=== PATIENT | female | born 1935 | race Caucasian/White ===

== ENCOUNTER 2016-07-25 15:25 | Emergency (ER) | payer MEDICARE, BC ==
[~2016-07-25] VITALS: Ht 167.6 cm; Wt 86.0 kg
[~2016-07-25 15:25] MED LIST: AMLO5TAB96 PO; ASPI325T PO; ATEN-102 PO; CALC-179 PO; CINN500C7 PO; CLON0.5T PO; CLOP75 PO; LEVE500 PO; LORA-392 PO; MAGN30TA2; MECL25CH PO; VITA400C28
[2016-07-25 15:50] VITALS: BP 135/78; PULSE 75; RESP 16; O2SAT 95
--- NOTE | 2016-07-25 16:53 | PD ---
HPI . s/p fall yesterday from tripping Chief Complaint: Fall Time Seen by Provider: 16:53 Travel History International Travel<30 days: No Contact w/Intl Traveler<30days: No Traveled to known affect area: No History of Present Illness HPI 81-year-old female with past medical history of diabetes, chronic vertigo, hx of CVA age 41, fibromyalgia, hypertension, atrial fibrillation, GERD and osteoarthritis here status post fall yesterday while transporting groceries to her house. Patient reports that she was using her rolling walker to push groceries into her house when she tripped over a stoop and fell down to the ground and landed on her right lower extremity. Patient reports that she did not have any loss of consciousness. She denies any head injury. She states that now she is having right lower extremity pain on the anterior rae. She rates the pain as a 5 out of 10 without any radiation. She is currently wearing a back brace and tells me that she has back injuries that are being followed by Dr. Banks. She denies hitting her back. She denies any syncopal events yesterday or dizziness. At the time of examination patient denies any chest pain, shortness breath, nausea, vomiting, diaphoresis, GI complaints or abdominal pain. PFSH Past Medical History Hx Anticoagulant Therapy: Yes (plavix, asa 325mg) Atrial Fibrillation: Yes Anxiety: Yes Heart Rhythm Problems: Yes Cardiac Catheterization: Yes Cardiovascular Problems: Yes (htn on meds) High Cholesterol: Yes Chest Pain: Yes Congestive Heart Failure: No Cerebrovascular Accident: Yes (tia) Coronary Artery Disease: Yes Diabetes: Yes (type 2) Diminished Hearing: Yes (dimished hearing has hearing aids) Deep Vein Thrombosis: Yes (LEFT ANKLE) Fibromyalgia: Yes GERD: Yes Hypertension: Yes Immune Disorder: Yes (FIBROMYALGIA) Kidney Stones: Yes Musculoskeletal: Yes (COSTOCHONDRITIS) Neurologic: Yes (POST STROKE SYNDROME, sciatica) Immunizations Current: Yes Myocardial Infarction: No Seizures: Yes (FOCAL) PNEUMOCCOCAL Vaccine (Year): 2 ?: Not Menopausal: Yes : 0 Para: 0 Miscarriage: 0 : 0 Past Surgical History Cholecystectomy: Yes Coronary Artery Bypass Graft: No Social History Alcohol Use: No Tobacco Use: No (quit 40 years ago) Substance Use: No Allergies-Medications (Allergen,Severity, Reaction): Coded Allergies: Floxcin (Verified Allergy, Severe, "face blotched", 07/25/16) Iodine (Unverified Allergy, Severe, Hives, 07/25/16) Latex (Verified Allergy, Severe, SWELLING AT SITE; TINGLING LIPS, 07/25/16) Macrobid (Verified Allergy, Severe, hives, 07/25/16) Penicillin (Verified Allergy, Severe, unknown, 07/25/16) Sulfa (Verified Allergy, Severe, "hives", 07/25/16) Erythromycin (Verified Adverse Reaction, Severe, "stomach problems", ) Uncoded Allergies: bandaids (Allergy, Severe, rash, 07/25/16) . Reported Meds & Prescriptions Reported Meds & Active Scripts Active Reported Magnesium 100 Mg Cap 30 Mg PO DAILY Meclizine (Meclizine HCl) 25 Mg Tab 25 Mg PO DIRECTED PRN Ativan (Lorazepam) 0.5 Mg Tab 0.5 Mg PO DAILY PRN Keppra (Levetiracetam) 500 Mg Tab 500 Mg PO Q4HR Plavix (Clopidogrel Bisulfate) 75 Mg Tab 75 Mg PO DAILY Klonopin (Clonazepam) 0.5 Mg Tab 0.5 Mg PO QID Cinnamon 500 Mg Cap 500 Mg PO DAILY Calcium/Vitamin D/Minerals (Calcium Carbonate-Vitamin D W/Minerals) 600-400 Mg- Unit Chew 1 Tab CHEW DIRECTED Atenolol 50 Mg Tab 50 Mg PO DAILY Aspirin 325 Mg Tab 325 Mg PO DAILY Norvasc (Amlodipine Besylate) 5 Mg Tab 5 Mg PO DAILY Review of Systems General / Constitutional: No: Fever Eyes: No: Visual changes HENT: No: Headaches Cardiovascular: No: Chest Pain or Discomfort Respiratory: No: Shortness of Breath Gastrointestinal: No: Abdominal Pain Genitourinary: No: Dysuria Musculoskeletal: Positive: Pain (right anterior rae) Skin: No Rash Neurologic: No: Weakness Psychiatric: No: Depression Endocrine: No: Polydipsia Hematologic/Lymphatic: No: Easy Bruising Physical Exam Narrative GENERAL: AAO x 3, no acute distress, Well-nourished, well-developed patient. Very good historian. SKIN: Warm and dry. No visible rashes or bruising. HEAD: Normocephalic and atraumatic. EYES: No scleral icterus. No injection or drainage. EOM intact, PERRLA ENT: No nasal drainage noted. Mucous membranes pink. Airway patent. NECK: Supple, trachea midline. No JVD. CARDIOVASCULAR: Regular rate and rhythm without murmurs, gallops, or rubs. RESPIRATORY: Breath sounds equal bilaterally. No accessory muscle use. No rhonchi or rales. GASTROINTESTINAL: Abdomen soft, non-tender, nondistended. EXTREMITIES: No cyanosis or edema. Point tenderness to anterior rae distal to the knee. No overall ecchymosis or edema. Patient is fully ambulatory. BACK: Nontender without obvious deformity. No CVA tenderness. Back brace in place. PSYCH: AAO x 3, normal affect. Data Data Last Documented VS Vital Signs Date Time Temp Pulse Resp B/P Pulse Ox O2 Delivery O2 Flow Rate FiO2 07/25/16 18:47 68 17 157/74 95 Orders Tibia/Fibula (Ap/Lat) (07/25/16 ) [facility] Medical Decision Making Medical Screen Exam Complete: Yes Emergency Medical Condition: Yes Medical Record Reviewed: Yes (seen multiple times most recently for vertigo) Differential Diagnosis tib/fib contusion, tib/fib fracture/ fibromyalgia Narrative Course 81-year-old female with past medical history of diabetes, chronic vertigo, hx of CVA age 41, fibromyalgia, hypertension, atrial fibrillation, GERD and osteoarthritis here status post fall yesterday while transporting groceries to her house. Patient reports that she was using her rolling walker to push groceries into her house when she tripped over a stoop and fell down to the ground and landed on her right lower extremity. Patient reports that she did not have any loss of consciousness. She denies any head injury. She states that now she is having right lower extremity pain on the anterior rae. She rates the pain as a 5 out of 10 without any radiation. She is currently wearing a back brace and tells me that she has back injuries that are being followed by Dr. Banks. She denies hitting her back. She denies any syncopal events yesterday or dizziness. At the time of examination patient denies any chest pain, shortness breath, nausea, vomiting, diaphoresis, GI complaints or abdominal pain. Patient seen and examined. Exam is unremarkable except for point tenderness on the right anterior rae distal to the knee. X-ray of the tib-fib recommended. Patients pain is 5 out of 10 offered pain medication and she declined While x-ray was pending I explained to patient that I had not been read by the radiologist but I did not see any fracture. She then expressed desire to leave and I advised that she could choose to leave AMA. She decided to stay and x-ray results were made available. She was notified that there was no acute fracture. I advised her to use Tylenol as needed for pain and to continue to ice the area. I also recommended follow-up with her primary care provider Last 24 hours Impressions Tibia/Fibula X-Ray 07/25/16 0000 Signed Impressions: Service Date/Time: Monday, July 25, 2016 17:32 - CONCLUSION: Unremarkable examination of the right tibia. Luc Cornelius MD Patient verbalized understanding of instructions, questions were answered, and thanked me for their care. I advised them if their condition worsens, please return to the nearest emergency room for further care. Diagnosis Primary Impression: Contusion of leg, right Qualified Code: S80.11XA - Contusion of leg, right, initial encounter Patient Instructions: Contusion in Adults (ED), General Instructions Additional Instructions: Please return to emergency department if your symptoms return or worsen. Follow up with your primary care provider. Take Tylenol as needed for pain. You can also use a topical muscle rub for relief. Med/Other Pt SpecificInfo: No Change to Meds Disposition: 01 DISCHARGE HOME Condition: Stable Agnes Jensen Jul 25, 2016 16:53
[2016-07-25] MEDS ORDERED: M2 M100C PO (17:01)
[2016-07-25] MEDS ORDERED: ATEN50TA PO (17:01)
[2016-07-25] MEDS ORDERED: PLAV75TA29 PO (17:01)
[2016-07-25] MEDS ORDERED: LEVE500 PO (17:01)
[2016-07-25] MEDS ORDERED: LORA-392 PO (17:01)
[2016-07-25] MEDS ORDERED: ASPI325T PO (17:01)
[2016-07-25] MEDS ORDERED: CINN500C PO (17:01)
[2016-07-25] MEDS ORDERED: AMLO5 PO (17:01)
[2016-07-25] MEDS ORDERED: [UNRECOGNIZED DRUG - CODE] CHEW (17:01)
[2016-07-25] MEDS ORDERED: CLON.5 PO (17:01)
[2016-07-25] MEDS ORDERED: MECL-62 PO (17:01)
--- NOTE | 2016-07-25 18:25 | RADHPO ---
EXAM DATE/TIME: 07/25/2016 17:32 [facility] COMPARISON: No previous studies available for comparison. INDICATIONS : Fall. Mid tibia pain. MEDICAL HISTORY : None. SURGICAL HISTORY : None. ENCOUNTER: Initial ACUITY: 3 days PAIN SCORE: 8/10 LOCATION: Right lateral FINDINGS: Two view examination of the right tibia demonstrates no evidence of fracture or dislocation. Bony mi neralization is normal. The soft tissue structures are intact. CONCLUSION: Unremarkable examination of the right tibia. Luc Cornelius MD on July 25, 2016 at 18:23 Board Certified Radiologist. This report was verified electronically.
[2016-07-25 18:47] VITALS: BP 157/74
== END 2016-07-25 18:48 | disposition home or self-care (01) ==
LOC: PHED 15:25 → PHEFT 18:48
DX: S80.11XA Contusion of right lower leg, initial encounter (principal); W01.0XXA Fall on same level from slipping, tripping and stumbling without subsequent striking against object, initial encounter; Y93.89 Activity, other specified; Y92.009 Unspecified place in unspecified non-institutional (private) residence as the place of occurrence of the external cause
CPT/HCPCS: 73590; 99283

== ENCOUNTER → 2016-08-12 | Outpatient (CLI) | payer MEDICARE, BC ==
[~2016-08-12] MED LIST changes: +AMLO5 PO; -AMLO5TAB96 PO; -ATEN-102 PO; +ATEN50TA PO; +BONE UP PO; -CALC-179 PO; +CINN500C PO; -CINN500C7 PO; +CLIN1CAP6 PO; +CLON.5 PO; -CLON0.5T PO; -CLOP75 PO; +M2 M100C PO; +MAGN200T PO; -MAGN30TA2; +MECL-62 PO; -MECL25CH PO; +MICO1CRE2 TOPICAL; +MICO1CRE2 VAGINAL; +MONUPAK PO; +PLAV75TA29 PO; -VITA400C28; +[UNRECOGNIZED DRUG - CODE] CHEW
[2016-08-12 13:14] LABS: AUTOMATED NEUTROPHIL # 2.6 TH/MM3 (1.8-7.7); BASOPHIL % 0.8 % (0.0-2.0); EOSINOPHIL # 0.2 TH/MM3 (0-0.4); EOSINOPHIL % 3.7 % (0.0-4.0); HEMATOCRIT 38.7 % (35.0-46.0); HEMO FLAGS DIFF FINAL; LYMPH % 31.7 % (9.0-44.0); LYMPHOCYTE # 1.5 TH/MM3 (1.0-4.8); MEAN CELL VOLUME 91.4 FL (80.0-100.0); MEAN CORPUSCULAR HEMOGLOBIN 31.4 PG (27.0-34.0); MEAN CORPUSCULAR HGB CONC 34.4 % (32.0-36.0); MONO % 9.2 % (0.0-8.0); NEUT % 54.6 % (16.0-70.0); PLATELET COUNT 224 TH/MM3 (150-450); RED BLOOD COUNT 4.23 MIL/MM3 (4.00-5.30); RED CELL DISTRIBUTION WIDTH 13.1 % (11.6-17.2); WHITE BLOOD COUNT 4.7 TH/MM3 (4.0-11.0)
[2016-08-12 13:24] LABS: BLOOD, URINE NEG (NEG); GLUCOSE,URINE NEG (NEG); KETONE, URINE NEG (NEG); MUCUS URINE FEW /lpf (OCC); NITRITE,URINE NEG (NEG); SQUAMOUS EPITHELIAL CELL URINE 1 /hpf (0-5); URINE COLOR YELLOW (YELLW/STRAW)
[2016-08-12 13:50] LABS: ALKALINE PHOSPHATASE 70 U/L (45-117); ALT (GPT) 28 U/L (10-53); ANION GAP 8 MEQ/L (5-15); AST (GOT) 26 U/L (15-37); BICARBONATE 27.9 MEQ/L (21.0-32.0); BLOOD UREA NITROGEN 14 MG/DL (7-18); CHLORIDE 103 MEQ/L (98-107); GLOMERULAR FILTRATION RATE 66 ML/MIN (>89); GLUCOSE,FASTING 169 MG/DL (74-99); HDL CHOLESTEROL 39.8 MG/DL (40.0-60.0); LDL CHOLESTEROL 108 MG/DL (0-99); POTASSIUM 4.3 MEQ/L (3.5-5.1); SODIUM (NA) 139 MEQ/L (136-145); TOTAL BILIRUBIN ADULT 0.7 MG/DL (0.2-1.0)
== END ==
LOC: PLAB 09:41
PROVIDERS: ATTEND Family Medicine
DX: M54.5 Low back pain (principal); M54.14 Radiculopathy, thoracic region; I10 Essential (primary) hypertension
CPT/HCPCS: 36415; 80053; 80061; 81001; 84443; 85025

== ENCOUNTER 2016-08-29 16:26 | Emergency (ER) | payer MEDICARE, BC ==
[~2016-08-29] VITALS: Ht 167.6 cm; Wt 85.0 kg
[~2016-08-29 16:26] MED LIST changes: -BONE UP PO; -CLIN1CAP6 PO; -MAGN200T PO; -MICO1CRE2 TOPICAL; -MICO1CRE2 VAGINAL; -MONUPAK PO
[2016-08-29 16:36] VITALS: BP 126/75; PULSE 82; RESP 16; TEMP 97.7; O2SAT 94
[2016-08-29 16:57] LABS: BLOOD, URINE NEG (NEG); GLUCOSE,URINE NEG (NEG); KETONE, URINE NEG (NEG); NITRITE,URINE NEG (NEG); PH, URINE 5.5 (5.0-8.5)
[2016-08-29 17:03] LABS: METHOD OF COLLECTION CLEAN CATCH; URINE COLOR YELLOW (YELLW/STRAW)
[2016-08-29 17:04] LABS: BACTERIA, URINE RARE /hpf; COMMENT (UR) CULT NOT INDICATED; CULTURE IF INDICATED CULT NOT INDICATED; RBC, URINE 0-3 /hpf (0-3); SQUAMOUS EPITHELIAL CELL URINE > 8 /hpf (0-5)
--- NOTE | 2016-08-29 17:15 | PD ---
HPI Chief Complaint: Complaint Time Seen by Provider: 16:55 Travel History International Travel<30 days: No Contact w/Intl Traveler<30days: No Traveled to known affect area: No History of Present Illness HPI 81-year-old female states she's been having intermittent burning when she urinates for the past 2 weeks. She denies any currently. She is concerned that she gets urinary tract infections frequently. She states that she can only take monurol given her extensive list of allergies and it is a hard medication to get. She also denies any other significant complaints including fever, vomiting, pain or other acute concerns. Quality is burning. Severity currently is none. PFSH Past Medical History Hx Anticoagulant Therapy: Yes (plavix, asa 325mg) Atrial Fibrillation: Yes Anxiety: Yes Heart Rhythm Problems: Yes Cardiac Catheterization: Yes Cardiovascular Problems: Yes (htn on meds) High Cholesterol: Yes Chest Pain: Yes Congestive Heart Failure: No Cerebrovascular Accident: Yes (tia) Coronary Artery Disease: Yes Diabetes: Yes (type 2) Diminished Hearing: Yes (dimished hearing has hearing aids) Deep Vein Thrombosis: Yes (LEFT ANKLE) Fibromyalgia: Yes GERD: Yes Hypertension: Yes Immune Disorder: Yes (FIBROMYALGIA) Kidney Stones: Yes Musculoskeletal: Yes (COSTOCHONDRITIS) Neurologic: Yes (POST STROKE SYNDROME, sciatica) Immunizations Current: Yes Myocardial Infarction: No Seizures: Yes (FOCAL) PNEUMOCCOCAL Vaccine (Year): 2 Menopausal: Yes : 0 Para: 0 Miscarriage: 0 : 0 Past Surgical History Cholecystectomy: Yes Coronary Artery Bypass Graft: No Other Surgery: Yes (GB) Social History Alcohol Use: No Tobacco Use: No (quit 40 years ago) Substance Use: No Allergies-Medications (Allergen,Severity, Reaction): Coded Allergies: Floxcin (Verified Allergy, Severe, "face blotched", 08/29/16) Iodine (Unverified Allergy, Severe, Hives, 08/29/16) Latex (Verified Allergy, Severe, SWELLING AT SITE; TINGLING LIPS, 08/29/16) Macrobid (Verified Allergy, Severe, hives, 08/29/16) Penicillin (Verified Allergy, Severe, unknown, 08/29/16) Sulfa (Verified Allergy, Severe, "hives", 08/29/16) Erythromycin (Verified Adverse Reaction, Severe, "stomach problems", ) Uncoded Allergies: bandaids (Allergy, Severe, rash, 07/25/16) . Reported Meds & Prescriptions Reported Meds & Active Scripts Active Reported Magnesium 100 Mg Cap 30 Mg PO DAILY Meclizine (Meclizine HCl) 25 Mg Tab 25 Mg PO DIRECTED PRN Ativan (Lorazepam) 0.5 Mg Tab 0.5 Mg PO DAILY PRN Keppra (Levetiracetam) 500 Mg Tab 500 Mg PO Q4HR Plavix (Clopidogrel Bisulfate) 75 Mg Tab 75 Mg PO DAILY Klonopin (Clonazepam) 0.5 Mg Tab 0.5 Mg PO QID Cinnamon 500 Mg Cap 500 Mg PO DAILY Calcium/Vitamin D/Minerals (Calcium Carbonate-Vitamin D W/Minerals) 600-400 Mg- Unit Chew 1 Tab CHEW DIRECTED Atenolol 50 Mg Tab 50 Mg PO DAILY Aspirin 325 Mg Tab 325 Mg PO DAILY Norvasc (Amlodipine Besylate) 5 Mg Tab 5 Mg PO DAILY Review of Systems Except as stated in HPI: all other systems reviewed are Neg Physical Exam Narrative GENERAL: Well-nourished, well-developed patient. SKIN: Warm and dry. HEAD: Normocephalic and atraumatic. EYES: No injection or drainage. ENT: No nasal drainage noted. NECK: Supple, trachea midline. CARDIOVASCULAR: Regular rate and rhythm RESPIRATORY: no increased effort. No accessory muscle use. GASTROINTESTINAL: Abdomen soft, non-tender, nondistended. NEUROLOGICAL: Awake and alert. Motor and sensory grossly within normal limits. Normal speech. Data Data Last Documented VS Vital Signs Date Time Temp Pulse Resp B/P Pulse Ox O2 Delivery O2 Flow Rate FiO2 08/29/16 16:36 97.7 82 16 126/75 94 Orders Urinalysis - C+S If Indicated (08/29/16 16:30) Labs Laboratory Tests Test 08/29/16 16:45 Urine Collection Type CLEAN CATCH Urine Color YELLOW Urine Turbidity CLEAR Urine pH 5.5 Urine Specific [place] 1.022 Urine Protein NEG mg/dL Urine Glucose (UA) NEG mg/dL Urine Ketones NEG mg/dL Urine Occult Blood NEG Urine Nitrite NEG Urine Bilirubin NEG Urine Leukocyte Esterase NEG Urine RBC 0-3 /hpf Urine WBC 3-5 /hpf Urine Squamous Epithelial > 8 /hpf Cells Urine Bacteria RARE /hpf Urine Hyaline Casts 3-5 /lpf Microscopic Urinalysis Comment CULT NOT INDICATED Urine Collection Time 16:45 MDM Medical Decision Making Medical Screen Exam Complete: Yes Emergency Medical Condition: Yes Medical Record Reviewed: Yes (pmh confirmed) Interpretation(s) ua no significant signs of infection Differential Diagnosis uti, yeast, stone... Narrative Course Will follow urinalysis sent in triage and reevaluate Urine shows no significant signs of infection. Given multiple allergies she agrees to follow with her urologist for further care. Given return instructions Diagnosis Primary Impression: Dysuria Patient Instructions: General Instructions Additional Instructions: follow with your urologist this week, return as needed, tylenol as needed Med/Other Pt SpecificInfo: No Change to Meds Disposition: 01 DISCHARGE HOME Condition: Stable Giovana Hoffman MD Aug 29, 2016 17:14
== END 2016-08-29 17:30 | disposition home or self-care (01) ==
LOC: PHED 16:26
DX: R30.0 Dysuria (principal); I48.91 Unspecified atrial fibrillation; I10 Essential (primary) hypertension; E78.00 Pure hypercholesterolemia, unspecified; I25.10 Atherosclerotic heart disease of native coronary artery without angina pectoris; E11.9 Type 2 diabetes mellitus without complications; M79.7 Fibromyalgia; Z86.718 Personal history of other venous thrombosis and embolism; Z86.73 Personal history of transient ischemic attack (TIA), and cerebral infarction without residual deficits; Z87.442 Personal history of urinary calculi; Z79.01 Long term (current) use of anticoagulants; Z87.891 Personal history of nicotine dependence
CPT/HCPCS: 81001; 99283

== ENCOUNTER 2016-09-05 12:39 | Emergency (ER) | payer MEDICARE, BC ==
[~2016-09-05] VITALS: Ht 167.6 cm; Wt 86.1 kg
[2016-09-05 12:55] VITALS: BP 139/78; PULSE 70; RESP 16; TEMP 97.9; O2SAT 93
[2016-09-05] MEDS ORDERED: CLIN1CAP6 PO (13:40)
[2016-09-05] MEDS ORDERED: MICO1CRE2 VAGINAL (13:40)
--- NOTE | 2016-09-05 13:41 | PD ---
HPI Chief Complaint: Complaint Time Seen by Provider: 13:13 Travel History International Travel<30 days: No Contact w/Intl Traveler<30days: No Traveled to known affect area: No History of Present Illness HPI This is an 81-year-old female who presents to the emergency department with burning and pain in her vagina worse on the left, constant for one week, worsening ever since she had a urethral dilation by Dr. Leiva in the setting of chronic dysuria. She has been taking an antibiotic that she can only get in powder form from [facility]. She's not sure of the name. She has had problems in her vagina that her doctor has had to cut open in the past. PFSH Past Medical History Hx Anticoagulant Therapy: Yes (plavix, asa 325mg) Atrial Fibrillation: Yes Anxiety: Yes Heart Rhythm Problems: Yes Cardiac Catheterization: Yes Cardiovascular Problems: Yes (htn on meds) High Cholesterol: Yes Chest Pain: Yes Congestive Heart Failure: No Cerebrovascular Accident: Yes (tia) Coronary Artery Disease: Yes Diabetes: Yes (type 2) Patient Takes Glucophage: No Diminished Hearing: Yes (dimished hearing has hearing aids) Deep Vein Thrombosis: Yes (LEFT ANKLE) Fibromyalgia: Yes GERD: Yes Heparin Induced Thrombocytopen: No Hypertension: Yes Immune Disorder: Yes (FIBROMYALGIA) Kidney Stones: Yes Musculoskeletal: Yes (COSTOCHONDRITIS) Neurologic: Yes (POST STROKE SYNDROME, sciatica) Immunizations Current: Yes Myocardial Infarction: No Seizures: Yes (FOCAL) Tetanus Vaccination: Unknown PNEUMOCCOCAL Vaccine (Year): 2 ?: Not Menopausal: Yes : 0 Para: 0 Miscarriage: 0 : 0 Past Surgical History Cholecystectomy: Yes Coronary Artery Bypass Graft: No Other Surgery: Yes (GB) Family History Family Myocardial Infarction: No Social History Alcohol Use: No Tobacco Use: No (quit 40 years ago) Substance Use: No Allergies-Medications (Allergen,Severity, Reaction): Coded Allergies: Floxcin (Verified Allergy, Severe, "face blotched", 09/05/16) Iodine (Unverified Allergy, Severe, Hives, 09/05/16) Latex (Verified Allergy, Severe, SWELLING AT SITE; TINGLING LIPS, 09/05/16) Macrobid (Verified Allergy, Severe, hives, 09/05/16) Penicillin (Verified Allergy, Severe, unknown, 09/05/16) Sulfa (Verified Allergy, Severe, "hives", 09/05/16) Erythromycin (Verified Adverse Reaction, Severe, "stomach problems", ) Uncoded Allergies: bandaids (Allergy, Severe, rash, 07/25/16) . Reported Meds & Prescriptions Reported Meds & Active Scripts Active Reported Magnesium 100 Mg Cap 30 Mg PO DAILY Meclizine (Meclizine HCl) 25 Mg Tab 25 Mg PO DIRECTED PRN Ativan (Lorazepam) 0.5 Mg Tab 0.5 Mg PO DAILY PRN Keppra (Levetiracetam) 500 Mg Tab 500 Mg PO Q4HR Plavix (Clopidogrel Bisulfate) 75 Mg Tab 75 Mg PO DAILY Klonopin (Clonazepam) 0.5 Mg Tab 0.5 Mg PO QID Cinnamon 500 Mg Cap 500 Mg PO DAILY Calcium/Vitamin D/Minerals (Calcium Carbonate-Vitamin D W/Minerals) 600-400 Mg- Unit Chew 1 Tab CHEW DIRECTED Atenolol 50 Mg Tab 50 Mg PO DAILY Aspirin 325 Mg Tab 325 Mg PO DAILY Norvasc (Amlodipine Besylate) 5 Mg Tab 5 Mg PO DAILY Review of Systems Except as stated in HPI: all other systems reviewed are Neg Physical Exam Narrative GENERAL:Well appearing, no acute distress SKIN: Warm and dry. HEAD: Atraumatic. Normocephalic. EYES: Pupils equal and round. No injection or drainage. ENT: Moist mucous membranes NECK: Trachea midline. CARDIOVASCULAR: Regular rate and rhythm. No murmur appreciated. RESPIRATORY: Clear to auscultation. Breath sounds equal bilaterally. GASTROINTESTINAL: Abdomen soft, non-tender, nondistended. [employer]: Erythema of the vaginal mucosa with some white discharge and a tender firm indurated area of about 2 cm along the left labia majora MUSCULOSKELETAL: No obvious deformities. NEUROLOGICAL: Awake and alert. No obvious cranial nerve deficits. Moving all extremities. PSYCHIATRIC: Appropriate mood and affect; insight and judgment normal. Data Data Last Documented VS Vital Signs Date Time Temp Pulse Resp B/P Pulse Ox O2 Delivery O2 Flow Rate FiO2 09/05/16 12:55 97.9 70 16 139/78 93 Orders Urinalysis - C+S If Indicated (09/05/16 13:12) MDM Medical Decision Making Medical Screen Exam Complete: Yes Emergency Medical Condition: Yes Differential Diagnosis Yeast infection, vulvar abscess, Bartholin's cyst, vaginitis, urinary tract infection Narrative Course This is an 81-year-old female who presents to the emergency department with pain and burning with urination as well as focal pain in the left vulvar area. She appears to have a possible early abscess of the left vulva which is quite discrete. At this time I don't think an incision and drainage is warranted. I advised her to apply warm compresses and will prescribe an antibiotic course. In addition I will prescribe for fluconazole for yeast infection. 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 She is otherwise nontoxic appearing and appropriate for outpatient management. Diagnosis Primary Impression: Yeast infection Additional Impression: Vulval boil Referrals: Informatics Pharmacist call for appointment Patient Instructions: General Instructions Departure Forms: Tests/Procedures Additional Instructions: If you develop increasing pain or swelling in your vagina, fevers or chills return to the emergency department. Apply warm washcloth for 15 minutes 4 times a day on the area and follow-up with your otr owner operator truck driver if this is not improving. Med/Other Pt SpecificInfo: Prescription(s) given Scripts Clindamycin 300 Mg [id number] Mg PO Q6H 7 Days Ref 0 Prov:Cristin Fisher MD 09/05/16 Miconazole 3 Vaginal Cream (Monistat 3 Vaginal Cream)4 % Cream1 Appl VAGINAL HS #1 BOX Ref 0 Prov:Cristin Fisher MD 09/05/16 Cristin Fisher MD Sep 05, 2016 13:41
[2016-09-05 13:43] LABS: BLOOD, URINE NEG (NEG); GLUCOSE,URINE NEG (NEG); KETONE, URINE TRACE mg/dL (NEG); NITRITE,URINE NEG (NEG)
[2016-09-05 13:45] LABS: METHOD OF COLLECTION CLEAN CATCH; URINE COLOR YELLOW (YELLW/STRAW)
[2016-09-05 13:51] LABS: COMMENT (UR) CULT NOT INDICATED; CULTURE IF INDICATED CULT NOT INDICATED; RBC, URINE 0-3 /hpf (0-3); SQUAMOUS EPITHELIAL CELL URINE 0-5 /hpf (0-5); WBC, URINE 0-2 /hpf (0-5)
== END 2016-09-05 13:57 | disposition home or self-care (01) ==
LOC: PHED 12:39
DX: B37.9 Candidiasis, unspecified (principal); N76.4 Abscess of vulva; R30.0 Dysuria; I10 Essential (primary) hypertension; E11.9 Type 2 diabetes mellitus without complications; E78.00 Pure hypercholesterolemia, unspecified; H91.90 Unspecified hearing loss, unspecified ear; Z79.01 Long term (current) use of anticoagulants; Z86.79 Personal history of other diseases of the circulatory system; Z86.59 Personal history of other mental and behavioral disorders; Z86.718 Personal history of other venous thrombosis and embolism; Z87.39 Personal history of other diseases of the musculoskeletal system and connective tissue; Z87.19 Personal history of other diseases of the digestive system; Z86.69 Personal history of other diseases of the nervous system and sense organs
CPT/HCPCS: 81001; 99283

== ENCOUNTER 2016-10-09 10:45 | Emergency (ER) | payer MEDICARE, BC ==
[~2016-10-09] VITALS: Ht 166.4 cm; Wt 84.0 kg
[~2016-10-09 10:45] MED LIST changes: +CLIN1CAP6 PO; +MICO1CRE2 VAGINAL
[2016-10-09 10:46] VITALS: BP 185/83; PULSE 78; RESP 20; TEMP 97.5; O2SAT 95
[2016-10-09 11:32] LABS: BACTERIA, URINE RARE /hpf; BLOOD, URINE SMALL (NEG); COMMENT (UR) CULTURE INDICATED; CULTURE IF INDICATED CULTURE INDICATED; GLUCOSE,URINE NEG (NEG); KETONE, URINE NEG (NEG); MUCUS URINE FEW /lpf (OCC); NITRITE,URINE NEG (NEG); SQUAMOUS EPITHELIAL CELL URINE 1 /hpf (0-5); URINE COLOR YELLOW (YELLW/STRAW)
--- NOTE | 2016-10-09 11:44 | PD ---
HPI Chief Complaint: Complaint Time Seen by Provider: 11:30 Travel History International Travel<30 days: No Contact w/Intl Traveler<30days: No Traveled to known affect area: No History of Present Illness HPI This is an 81-year-old female with history of chronic dysuria, frequent urethral dilations, presents for evaluation of incontinence. She reports that throughout the night she urinated on her underwear several times which is unusual for her. It kept her up throughout the night. She reports increased urinary frequency as well. She denies any acute dysuria or pain but she does endorse a pressure sensation over her pubis. She denies any generalized abdominal pain, nausea or vomiting, fevers or chills. She does endorse chronic lower back pain and 3 weeks ago she did fall. Since that her back pain has been a little bit worse and over the past 3 days she endorses some radicular symptoms down her left leg. She denies any lower extremity weakness, saddle anesthesia. She reports that despite her chronic dysuria she only very rarely gets urinary tract infections and she doubts that she has a urinary tract infection at this time. She reports that the only antibiotic that she is able to take is Monurole. PFSH Past Medical History Hx Anticoagulant Therapy: Yes (PLAVIX/ASA) Atrial Fibrillation: Yes Anxiety: Yes Heart Rhythm Problems: Yes Cardiac Catheterization: Yes Cardiovascular Problems: Yes High Cholesterol: Yes Chest Pain: Yes Congestive Heart Failure: No Cerebrovascular Accident: Yes (tia) Coronary Artery Disease: Yes Diabetes: Yes Patient Takes Glucophage: No Diminished Hearing: Yes (dimished hearing has hearing aids) Deep Vein Thrombosis: Yes (LEFT ANKLE) Fibromyalgia: Yes GERD: Yes Heparin Induced Thrombocytopen: No Hypertension: Yes Immune Disorder: Yes (FIBROMYALGIA) Kidney Stones: Yes Musculoskeletal: Yes (COSTOCHONDRITIS) Neurologic: Yes (POST STROKE SYNDROME, sciatica) Immunizations Current: Yes Myocardial Infarction: No Seizures: Yes (FOCAL) PNEUMOCCOCAL Vaccine (Year): 2 Menopausal: Yes : 0 Para: 0 Miscarriage: 0 : 0 Past Surgical History Cholecystectomy: Yes Coronary Artery Bypass Graft: No Other Surgery: Yes (GB) Social History Alcohol Use: No Tobacco Use: No (quit 40 years ago) Substance Use: No Allergies-Medications (Allergen,Severity, Reaction): Coded Allergies: Floxcin (Verified Allergy, Severe, "face blotched", 10/09/16) Iodine (Unverified Allergy, Severe, Hives, 10/09/16) Latex (Verified Allergy, Severe, SWELLING AT SITE; TINGLING LIPS, 10/09/16) Macrobid (Verified Allergy, Severe, hives, 10/09/16) Penicillin (Verified Allergy, Severe, unknown, 10/09/16) Sulfa (Verified Allergy, Severe, "hives", 10/09/16) Erythromycin (Verified Adverse Reaction, Severe, "stomach problems", ) Uncoded Allergies: bandaids (Allergy, Severe, rash, 07/25/16) . Reported Meds & Prescriptions Reported Meds & Active Scripts Active Monurol Packet (Fosfomycin Tromethamine) 3 Gm Powderpack 1 Pack PO ONCE Clindamycin (Clindamycin HCl) 300 Mg Cap 300 Mg PO Q6H 7 Days Monistat 3 Vaginal Cream (Miconazole 3 Vaginal Cream) 4 % Cream 1 Appl VAGINAL HS Reported Magnesium 100 Mg Cap 30 Mg PO DAILY Meclizine (Meclizine HCl) 25 Mg Tab 25 Mg PO DIRECTED PRN Ativan (Lorazepam) 0.5 Mg Tab 0.5 Mg PO DAILY PRN Keppra (Levetiracetam) 500 Mg Tab 500 Mg PO Q4HR Plavix (Clopidogrel Bisulfate) 75 Mg Tab 75 Mg PO DAILY Klonopin (Clonazepam) 0.5 Mg Tab 0.5 Mg PO QID Cinnamon 500 Mg Cap 500 Mg PO DAILY Calcium/Vitamin D/Minerals (Calcium Carbonate-Vitamin D W/Minerals) 600-400 Mg- Unit Chew 1 Tab CHEW DIRECTED Atenolol 50 Mg Tab 50 Mg PO DAILY Aspirin 325 Mg Tab 325 Mg PO DAILY Norvasc (Amlodipine Besylate) 5 Mg Tab 5 Mg PO DAILY Review of Systems Except as stated in HPI: all other systems reviewed are Neg Physical Exam Narrative GENERAL: Well-developed well-nourished female in no acute distress SKIN: Warm and dry. HEAD: Atraumatic. Normocephalic. EYES: Pupils equal and round. No scleral icterus. No injection or drainage. ENT: No nasal bleeding or discharge. Mucous membranes pink and moist. NECK: Trachea midline. No JVD. CARDIOVASCULAR: Regular rate and rhythm. No murmur appreciated. RESPIRATORY: No accessory muscle use. Clear to auscultation. Breath sounds equal bilaterally. GASTROINTESTINAL: Abdomen soft, non-tender, nondistended. Hepatic and splenic margins not palpable. MUSCULOSKELETAL: No obvious deformities. No CVA tenderness. Some tenderness to palpation along the spine. 5 out of 5 muscle strength leg flexion and extension, dorsi and plantar flexion. 1+ Achilles/patellar reflex bilaterally. The patient is able to ambulate without assistance to the bathroom. NEUROLOGICAL: Awake and alert. No obvious cranial nerve deficits. Motor grossly within normal limits. Normal speech. PSYCHIATRIC: Appropriate mood and affect; insight and judgment normal. Data Data Last Documented VS Vital Signs Date Time Temp Pulse Resp B/P Pulse Ox O2 Delivery O2 Flow Rate FiO2 10/09/16 10:46 97.5 78 20 185/83 95 Room Air Orders Urinalysis - C+S If Indicated (10/09/16 10:56) Urine Culture (10/09/16 11:10) Mri L Spine W/O Contrast (10/09/16 ) Complete Blood Count With Diff (10/09/16 11:36) Basic Metabolic Panel (Bmp) (10/09/16 11:36) Labs Laboratory Tests Test 10/09/16 10/09/16 11:10 11:40 Urine Color YELLOW Urine Turbidity HAZY Urine pH 5.0 Urine Specific [place] 1.023 Urine Protein 30 mg/dL Urine Glucose (UA) NEG mg/dL Urine Ketones NEG mg/dL Urine Occult Blood SMALL Urine Nitrite NEG Urine Bilirubin NEG Urine Urobilinogen LESS THAN 2.0 MG/DL Urine Leukocyte Esterase LARGE Urine RBC 27 /hpf Urine WBC /hpf Urine Squamous Epithelial 1 /hpf Cells Urine Bacteria RARE /hpf Urine Mucus FEW /lpf Microscopic Urinalysis Comment CULTURE INDICATED White Blood Count 8.0 TH/MM3 Red Blood Count 4.35 MIL/MM3 Hemoglobin 13.2 GM/DL Hematocrit 39.6 % Mean Corpuscular Volume 90.9 FL Mean Corpuscular Hemoglobin 30.4 PG Mean Corpuscular Hemoglobin 33.5 % Concent Red Cell Distribution Width 13.1 % Platelet Count 163 TH/MM3 Mean Platelet Volume 8.4 FL Neutrophils (%) (Auto) 71.2 % Lymphocytes (%) (Auto) 20.3 % Monocytes (%) (Auto) 7.0 % Eosinophils (%) (Auto) 1.0 % Basophils (%) (Auto) 0.5 % Neutrophils # (Auto) 5.7 TH/MM3 Lymphocytes # (Auto) 1.6 TH/MM3 Monocytes # (Auto) 0.6 TH/MM3 Eosinophils # (Auto) 0.1 TH/MM3 Basophils # (Auto) 0.0 TH/MM3 CBC Comment DIFF FINAL Differential Comment Sodium Level 140 MEQ/L Potassium Level 4.1 MEQ/L Chloride Level 102 MEQ/L Carbon Dioxide Level 29.1 MEQ/L Anion Gap 9 MEQ/L Blood Urea Nitrogen 15 MG/DL Creatinine 0.87 MG/DL Estimat Glomerular Filtration 63 ML/MIN Rate Random Glucose 196 MG/DL Calcium Level 9.4 MG/DL [facility] Medical Decision Making Medical Screen Exam Complete: Yes Emergency Medical Condition: Yes Medical Record Reviewed: Yes Differential Diagnosis Stress incontinence, overflow incontinence, urgency incontinence, UTI, cauda equina Narrative Course 81-year-old female with history of chronic urinary issues presents now with the chief complaint of acute incontinence issues since last night. She reports that she urinated in her underwear several times and it is associated with a slight pressure over her pubis. She does endorse chronic lower back pain, somewhat worse over the past few weeks with radicular symptoms down the left leg. She does endorse a mechanical fall to 3 weeks ago. Given these symptoms with the chief complaint of incontinence, plan is for MRI of the lumbar spine to rule out spinal cord etiology. Plan is for urinalysis, CBC and BMP. The patient's laboratory imaging studies of injury. She she has innumerable white blood cells in the urine consistent with a urinary tract infection, likely etiology for her symptoms. MRI revealed mild degenerative changes, no acute findings. CBC and BMP were unremarkable. The patient is stable for discharge, outpatient follow-up with urology. Diagnosis Primary Impression: Urinary tract infection Qualified Code: N30.01 - Acute cystitis with hematuria Additional Instructions: Medication as prescribed, follow-up with urology, return for any emergent medical conditions. Med/Other Pt SpecificInfo: Prescription(s) given Scripts Fosfomycin Packet (Monurol Packet)3 Gm Powderpack1 Pack PO ONCE #1 Prov:Wojciech Nichols MD 10/09/16 Disposition: DISCHARGE HOME Condition: Stable Tonny Rodriguez October 09, 2016 11:44
[2016-10-09] MEDS ORDERED: MONUPAK PO (11:46)
[2016-10-09 12:05] LABS: AUTOMATED NEUTROPHIL # 5.7 TH/MM3 (1.8-7.7); BASOPHIL % 0.5 % (0.0-2.0); EOSINOPHIL # 0.1 TH/MM3 (0-0.4); HEMATOCRIT 39.6 % (35.0-46.0); HEMO FLAGS DIFF FINAL; LYMPH % 20.3 % (9.0-44.0); LYMPHOCYTE # 1.6 TH/MM3 (1.0-4.8); MEAN CELL VOLUME 90.9 FL (80.0-100.0); MEAN CORPUSCULAR HEMOGLOBIN 30.4 PG (27.0-34.0); MEAN CORPUSCULAR HGB CONC 33.5 % (32.0-36.0); NEUT % 71.2 % (16.0-70.0); PLATELET COUNT 163 TH/MM3 (150-450); RED BLOOD COUNT 4.35 MIL/MM3 (4.00-5.30); RED CELL DISTRIBUTION WIDTH 13.1 % (11.6-17.2)
[2016-10-09 12:18] LABS: BICARBONATE 29.1 MEQ/L (21.0-32.0); POTASSIUM 4.1 MEQ/L (3.5-5.1)
--- NOTE | 2016-10-09 13:15 | RADRPT ---
EXAM DATE/TIME: 10/09/2016 12:43 [facility] COMPARISON: No previous studies available for comparison. INDICATIONS : Low back pain/incontinence MEDICAL HISTORY : Diabetes mellitus type 2. Hypertension. Cardiovascular disease. SURGICAL HISTORY : Coronary artery stent. Cholecystectomy. ENCOUNTER: Initial ACUITY: 1 day PAIN SCORE: 5/10 LOCATION: [facility] TECHNIQUE: Multiplanar multisequence MRI of the lumbar spine was performed without contrast. FINDINGS: The most caudal appearing lumbar vertebra is numbered as L5. Sagittal T1 and T2-weighted images demonstrate dyskinesia, degenerated disc throughout the lumbar spi ne. There is an old compression fracture involving the superior endplate of L1. There is no significa nt marrow edema within this on the inversion recovery images. The cord terminates in its appropriate location. The paraspinous soft tissues are unremarkable. T12-L1: There is minimal bony retropulsion of the superior endplate of L1. There is a small broad-based disc bulge. The ankle space and foramina are adequate. L1-L2: There is minimal broad-based disc bulge. There is mild facet arthritis bilaterally. The thecal space and foramina are adequate. L2-L3: There is a degenerated disc with a small broad-based disc bulge and osteophytic ridging. This just ef faces the ventral thecal sac. The residual thecal space and foramina are adequate. There is mild face t arthritis bilaterally. L3-L4: There is broad-based disc bulge and mild osteophytic ridging which effaces the ventral thecal sac. Th ere is mild narrowing of the thecal sac. There is moderate facet arthritis bilaterally with degenerat sheree facet and ligamentous hypertrophy. The foramina are adequate. L4-L5: There is a broad-based disc bulge and diffuse osteophytic ridging. There is advanced facet arthritis bilaterally with degenerative facet and ligamentous hypertrophy this results in a mild degree of spin al stenosis and bilateral foraminal narrowing. L5-S1: There is a degenerated disc with broad-based disc bulge. This effaces the ventral thecal sac. There i s disc material evident encroaching upon the lateral recess and foraminal on the left. The foramina o n the right appears adequate. There is mild facet arthritis bilaterally. CONCLUSION: 1. There are degenerative changes throughout the lumbar spine as described above. There are some area s of mild spinal stenosis but no severe spinal stenosis is evident. The individual levels are dictate d in detail above. Karl Oquendo MD on October 09, 2016 at 13:10 Board Certified Radiologist. This report was verified electronically.
[2016-10-09] MEDS ORDERED: MICO1CRE2 TOPICAL (14:00)
[2016-10-09] MEDS ORDERED: MAGN200T PO (14:00)
[2016-10-09] MEDS ORDERED: BONE UP PO (14:00)
== END 2016-10-09 14:11 | disposition home or self-care (01) ==
LOC: NEPC 10:45
DX: N30.01 Acute cystitis with hematuria (principal); B96.89 Other specified bacterial agents as the cause of diseases classified elsewhere
CPT/HCPCS: 72148; 80048; 81001; 85025; 87086

== ENCOUNTER → 2016-11-12 | Outpatient (CLI) | payer MEDICARE, BC ==
[~2016-11-12] MED LIST changes: +BONE UP PO; -CLIN1CAP6 PO; -M2 M100C PO; +MAGN200T PO; -MECL-62 PO; +MICO1CRE2 TOPICAL; -MICO1CRE2 VAGINAL; +MONUPAK PO; -[UNRECOGNIZED DRUG - CODE] CHEW
[2016-11-12 13:10] LABS: HEMATOCRIT 41.9 % (35.0-46.0); MEAN CELL VOLUME 91.8 FL (80.0-100.0); MEAN CORPUSCULAR HEMOGLOBIN 30.3 PG (27.0-34.0); PLATELET COUNT 168 TH/MM3 (150-450); RED BLOOD COUNT 4.56 MIL/MM3 (4.00-5.30); RED CELL DISTRIBUTION WIDTH 13.4 % (11.6-17.2); REVIEW FLAG FINAL; WHITE BLOOD COUNT 4.5 TH/MM3 (4.0-11.0)
[2016-11-12 13:10] LABS: BACTERIA, URINE RARE /hpf; BLOOD, URINE NEG (NEG); GLUCOSE,URINE NEG (NEG); KETONE, URINE NEG (NEG); MUCUS URINE FEW /lpf (OCC); NITRITE,URINE NEG (NEG); SQUAMOUS EPITHELIAL CELL URINE 2 /hpf (0-5); TRANSITIONAL EPI CELLS, URINE <1 /hpf; URINE COLOR YELLOW (YELLW/STRAW)
[2016-11-12 13:39] LABS: ANION GAP 12 MEQ/L (5-15); AST (GOT) 26 U/L (15-37); BICARBONATE 23.3 MEQ/L (21.0-32.0); BLOOD UREA NITROGEN 18 MG/DL (7-18); CHLORIDE 102 MEQ/L (98-107); GLOMERULAR FILTRATION RATE 57 ML/MIN (>89); GLUCOSE,FASTING 175 MG/DL (74-99); POTASSIUM 3.9 MEQ/L (3.5-5.1); SODIUM (NA) 137 MEQ/L (136-145)
[2016-11-12 13:41] LABS: ALT (GPT) 31 U/L (10-53)
[2016-11-12 13:50] LABS: ALKALINE PHOSPHATASE 66 U/L (45-117); HDL CHOLESTEROL 43.8 MG/DL (40.0-60.0); LDL CHOLESTEROL 174 MG/DL (0-99); TOTAL BILIRUBIN ADULT 0.9 MG/DL (0.2-1.0)
== END ==
LOC: PLAB 09:03
PROVIDERS: ATTEND Family Medicine
DX: M54.5 Low back pain (principal); M54.14 Radiculopathy, thoracic region; I10 Essential (primary) hypertension
CPT/HCPCS: 36415; 80053; 80061; 81001; 84443; 85027

== ENCOUNTER 2017-11-10 15:00 | Inpatient (IN) | payer MEDICARE, BC ==
[~2017-11-10] VITALS: Ht 167.6 cm; Wt 80.0 kg
[~2017-11-10 15:00] MED LIST changes: +ASPI-183 PO; -ASPI325T PO
[2017-11-10 15:20] VITALS: BP 156/72; PULSE 84; RESP 20; TEMP 98.4; O2SAT 97
--- NOTE | 2017-11-10 16:09 | PD ---
HPI Chief Complaint: Medical Clearance Time Seen by Provider: 15:23 Travel History International Travel<30 days: No Contact w/Intl Traveler<30days: No Traveled to known affect area: No History of Present Illness HPI Patient is an 82-year-old female presenting to the emergency department for evaluation of left lower extremity edema. Patient states it has been more swollen for the last 2-3 days. 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 Patient reports a history of a DVT remotely, she believes it was in her knee. She states her leg is painful, she rates it a 6 out of 10, worse with walking. Patient denies any chest pain, shortness of breath, fever, chills, headache. She is on aspirin and Plavix. Symptom onset was gradual, symptoms are mild to moderate nature. Symptoms are constant but alleviated with rest and exacerbated with movement. PFSH Past Medical History Hx Anticoagulant Therapy: Yes (PLAVIX/ASA) Atrial Fibrillation: Yes Anxiety: Yes Heart Rhythm Problems: Yes Cardiac Catheterization: Yes Cardiovascular Problems: Yes High Cholesterol: Yes Chest Pain: Yes Cerebrovascular Accident: Yes (tia) Coronary Artery Disease: Yes Diabetes: Yes Diminished Hearing: Yes (dimished hearing has hearing aids) Deep Vein Thrombosis: Yes (LEFT ANKLE) Fibromyalgia: Yes GERD: Yes Heparin Induced Thrombocytopen: No Hypertension: Yes Kidney Stones: Yes Musculoskeletal: Yes (COSTOCHONDRITIS) Immunizations Current: Yes Seizures: Yes (FOCAL) PNEUMOCCOCAL Vaccine (Year): 2 Menopausal: Yes : 0 Para: 0 Miscarriage: 0 : 0 Past Surgical History Cholecystectomy: Yes Coronary Artery Bypass Graft: No Other Surgery: Yes (GB) Social History Alcohol Use: No Tobacco Use: No (quit 40 years ago) Substance Use: No Allergies-Medications (Allergen,Severity, Reaction): Coded Allergies: Sulfa (Sulfonamide Antibiotics) (Unverified Allergy, Severe, "hives", ) iodine (Unverified Allergy, Severe, Hives, 11/10/17) latex (Unverified Allergy, Severe, SWELLING AT SITE; TINGLING LIPS, 11/10/17 ) nitrofurantoin (Unverified Allergy, Severe, hives, 11/10/17) ofloxacin (Unverified Allergy, Severe, "face blotched", 11/10/17) penicillin G (Unverified Allergy, Severe, unknown, 11/10/17) potassium iodide (Unverified Allergy, Severe, Hives, 11/10/17) povidone-iodine (Unverified Allergy, Severe, Hives, 11/10/17) sodium iodide (Unverified Allergy, Severe, Hives, 11/10/17) sodium iodide (Unverified Allergy, Severe, Hives, 11/10/17) erythromycin base (Unverified Adverse Reaction, Severe, "stomach problems ", 11/10/17) Uncoded Allergies: bandaids (Allergy, Severe, rash, 07/25/16) . Reported Meds & Prescriptions Reported Meds & Active Scripts Active Reported Estrace Vaginal (Estradiol) 0.01% Cream 1 Appl VAGINAL HS Co Q 10 (Coenzyme Q10 (Ubidecarenone)) 100 Mg-5 Unit Cap 1 Tab PO DAILY Acidophilus (Probiotic Product) 1 Chew 1 Tab PO DAILY Vitamin D-400 (Cholecalciferol) 400 Unit Tab 400 Units PO DAILY Malka-C 1,000 mg Tablet (Ascorbate Calcium/Bioflavonoid) 1,000 Mg-200 Mg Tablet 1 Tab PO DAILY Cranberry Urinary Comfort (Vitamins C & E) 1 Cap 1 Cap PO DAILY Warfarin 1 Mg Tab 1 Mg PO DAILY Calcium 500 +D (Calcium Carbonate-Cholecalciferol) 500-400 Mg-Unit Tab 1 Tab PO QID Lotrisone Topical (Betamethasone/Clotrimazole) 1-0.05% Cream 1 Applic TOPICAL BID Ativan (Lorazepam) 0.5 Mg Tab 0.5 Mg PO DAILY PRN Keppra (Levetiracetam) 500 Mg Tab 500 Mg PO Q4HR Plavix (Clopidogrel Bisulfate) 75 Mg Tab 75 Mg PO HS Klonopin (Clonazepam) 0.5 Mg Tab 0.5 Mg PO QID Atenolol 50 Mg Tab 50 Mg PO DAILY @ 0100 Norvasc (Amlodipine Besylate) 5 Mg Tab 5 Mg PO DAILY Review of Systems Except as stated in HPI: all other systems reviewed are Neg Musculoskeletal: Positive: Edema, Pain Physical Exam Narrative GENERAL: Overweight, well-developed, alert elderly female. Presenting in no acute distress. SKIN: Warm and dry. HEAD: Atraumatic. Normocephalic. EYES: Pupils equal and round. No scleral icterus. No injection or drainage. ENT: No nasal bleeding or discharge. Mucous membranes pink and moist. NECK: Trachea midline. No JVD. CARDIOVASCULAR: Regular rate and rhythm. RESPIRATORY: No accessory muscle use. Clear to auscultation. Breath sounds equal bilaterally. GASTROINTESTINAL: Abdomen soft, non-tender, nondistended. Hepatic and splenic margins not palpable. MUSCULOSKELETAL: Extremities without clubbing, cyanosis. No obvious deformities. Edema to left lower extremity, nonpitting. Positive Homans sign. 2+ dorsalis pedal pulse. NEUROLOGICAL: Awake and alert. No obvious cranial nerve deficits. Motor grossly within normal limits. Five out of 5 muscle strength in the arms and legs. Normal speech. PSYCHIATRIC: Appropriate mood and affect; insight and judgment normal. Data Data Last Documented VS Vital Signs Date Time Temp Pulse Resp B/P (MAP) Pulse Ox O2 Delivery O2 Flow Rate FiO2 11/10/17 15:20 98.4 84 20 156/72 (100) 97 Orders Orders Complete Blood Count With Diff (11/10/17 15:34) Basic Metabolic Panel (Bmp) (11/10/17 15:34) Act Partial Throm Time (Ptt) (11/10/17 15:34) Prothrombin Time / Inr (Pt) (11/10/17 15:34) Iv Access Insert/Monitor (11/10/17 15:34) Us Leg Venous Doppler (11/10/17 ) Heparin Inj (Heparin Inj) (11/10/17 18:30) Heparin-D5w 25,000 U/250 Ml (Heparin-D5w (11/10/17 18:30) Cbc No Diff, Includes Plts (11/13/17 06:00) Act Partial Throm Time (Ptt) (11/11/17 01:22) Diet Heart Healthy (11/10/17 Dinner) Admit Order (Ed Use Only) (11/10/17 18:47) Urinalysis - C+S If Indicated (11/10/17 18:54) Labs Laboratory Tests Test 11/10/17 16:34 White Blood Count 6.9 TH/MM3 Red Blood Count 4.32 MIL/MM3 Hemoglobin 13.3 GM/DL Hematocrit 39.4 % Mean Corpuscular Volume 91.4 FL Mean Corpuscular Hemoglobin 30.9 PG Mean Corpuscular Hemoglobin Concent 33.8 % Red Cell Distribution Width 13.3 % Platelet Count 293 TH/MM3 Mean Platelet Volume 7.5 FL Neutrophils (%) (Auto) 63.0 % Lymphocytes (%) (Auto) 25.7 % Monocytes (%) (Auto) 9.6 % Eosinophils (%) (Auto) 0.9 % Basophils (%) (Auto) 0.8 % Neutrophils # (Auto) 4.4 TH/MM3 Lymphocytes # (Auto) 1.8 TH/MM3 Monocytes # (Auto) 0.7 TH/MM3 Eosinophils # (Auto) 0.1 TH/MM3 Basophils # (Auto) 0.1 TH/MM3 CBC Comment DIFF FINAL Differential Comment Prothrombin Time 10.3 SEC Prothromb Time International Ratio 1.0 RATIO Activated Partial Thromboplast Time 19.6 SEC Blood Urea Nitrogen 11 MG/DL Creatinine 0.89 MG/DL Random Glucose 120 MG/DL Calcium Level 9.0 MG/DL Sodium Level 139 MEQ/L Potassium Level 3.8 MEQ/L Chloride Level 103 MEQ/L Carbon Dioxide Level 27.0 MEQ/L Anion Gap 9 MEQ/L Estimat Glomerular Filtration Rate 61 ML/MIN MDM Medical Decision Making Medical Screen Exam Complete: Yes Emergency Medical Condition: Yes Interpretation(s) Vital Signs Date Time Temp Pulse Resp B/P (MAP) Pulse Ox O2 Delivery O2 Flow Rate FiO2 11/10/17 15:20 98.4 84 20 156/72 (100) 97 Differential Diagnosis Peripheral edema versus phlebitis versus DVT versus other Narrative Course Patient is an 82-year-old female presenting for evaluation of left lower extremity edema. Patient's vital signs are stable, she is neurovascularly intact. Imaging ordered and pending. Ultrasound left leg shows extensive left lower extremity DVT extending from the left iliac system down to the left Into the peroneal vein. CBC, chemistry, coags are unremarkable. Patient is extremely nervous, she stated that she lives alone. Discussed patient with her primary doctor, Dr. Henry. Her primary doctor recommended admitting her, starting her on a heparin drip. Orders were placed. Discussed with Dr. Vidal who accepted admission. Patient has a difficult time with office follow-up, she would likely benefit from being on Xarelto. Patient was sent by her bridge opener, patient was concerned for urinary tract infection. According to Dr. Sorto's notes that were sent with the patient, a urinalysis on 10/18/17 was negative. Repeat UA has been ordered. Will defer any further antibiotic therapy until that results. All labs, imaging and plan of care has been discussed with patient. She was reassured at this time. Diagnosis Primary Impression: DVT (deep venous thrombosis) Qualified Codes: I82.4Z2 - Acute embolism and thrombosis of unspecified deep veins of left distal lower extremity Admitting Information Admitting Physician Requests: Observation Condition: Stable Nisha Villanueva Nov 10, 2017 16:09
[2017-11-10 17:02] LABS: AUTOMATED NEUTROPHIL # 4.4 TH/MM3 (1.8-7.7); BASOPHIL # 0.1 TH/MM3 (0-0.2); BASOPHIL % 0.8 % (0.0-2.0); EOSINOPHIL # 0.1 TH/MM3 (0-0.4); EOSINOPHIL % 0.9 % (0.0-4.0); HEMATOCRIT 39.4 % (35.0-46.0); HEMOGLOBIN 13.3 GM/DL (11.6-15.3); LYMPH % 25.7 % (9.0-44.0); LYMPHOCYTE # 1.8 TH/MM3 (1.0-4.8); MEAN CELL VOLUME 91.4 FL (80.0-100.0); MEAN CORPUSCULAR HEMOGLOBIN 30.9 PG (27.0-34.0); MEAN CORPUSCULAR HGB CONC 33.8 % (32.0-36.0); MEAN PLATELET VOLUME 7.5 FL (7.0-11.0); MONO % 9.6 % (0.0-8.0); MONOCYTE # 0.7 TH/MM3 (0-0.9); PLATELET COUNT 293 TH/MM3 (150-450); RED BLOOD COUNT 4.32 MIL/MM3 (4.00-5.30); RED CELL DISTRIBUTION WIDTH 13.3 % (11.6-17.2); WHITE BLOOD COUNT 6.9 TH/MM3 (4.0-11.0)
[2017-11-10 17:06] LABS: CREATININE 0.89 MG/DL (0.50-1.00)
[2017-11-10 17:10] LABS: PROTHROMBIN TIME - PATIENT 10.3 SEC (9.8-11.6)
--- NOTE | 2017-11-10 17:48 | RADRPT ---
EXAM DATE: 11/10/2017 5:42 PM EDT AGE/SEX: 82 years / Female INDICATIONS: Left lower extremity pain and swelling x 2-3 days. CLINICAL DATA: This is the patient's initial encounter. Patient reports that signs and symptoms have been present for 3 days and indicates a pain score of 3/10. MEDICAL/SURGICAL HISTORY: Hypercholesterolemia. Deep venous thrombosis. Hyperparathyroidism. Atrial Fibrillation. TIA. Coronary Artery Disease. Diabetes. Fibromyalgia. GERD. Kidney Stones . Costochondritis. Seizures. Cholecystectomy. COMPARISON: [facility], US LEG LEFT VENOUS DOPPLER, 05/29/2012. . TECHNIQUE: Venous ultrasound of both lower extremities was performed from the inguinal ligament to t he proximal calf. Real-time, color Doppler and spectral tracing, compression and augmentation techni ques were used. FINDINGS: There is extensive left leg DVT with clot extending from the left iliac system down through to the le ft calf into the peroneal vein. CONCLUSION: Extensive left lower extremity DVT Electronically signed by: Munir Monahan MD 11/10/2017 5:46 PM EDT
--- NOTE | 2017-11-10 18:19 | PD ---
Data Data Last Documented VS Vital Signs Date Time Temp Pulse Resp B/P (MAP) Pulse Ox O2 Delivery O2 Flow Rate FiO2 11/10/17 15:20 98.4 84 20 156/72 (100) 97 Orders Orders Complete Blood Count With Diff (11/10/17 15:34) Basic Metabolic Panel (Bmp) (11/10/17 15:34) Act Partial Throm Time (Ptt) (11/10/17 15:34) Prothrombin Time / Inr (Pt) (11/10/17 15:34) Iv Access Insert/Monitor (11/10/17 15:34) Us Leg Venous Doppler (11/10/17 ) Labs Laboratory Tests Test 11/10/17 16:34 White Blood Count 6.9 TH/MM3 Red Blood Count 4.32 MIL/MM3 Hemoglobin 13.3 GM/DL Hematocrit 39.4 % Mean Corpuscular Volume 91.4 FL Mean Corpuscular Hemoglobin 30.9 PG Mean Corpuscular Hemoglobin Concent 33.8 % Red Cell Distribution Width 13.3 % Platelet Count 293 TH/MM3 Mean Platelet Volume 7.5 FL Neutrophils (%) (Auto) 63.0 % Lymphocytes (%) (Auto) 25.7 % Monocytes (%) (Auto) 9.6 % Eosinophils (%) (Auto) 0.9 % Basophils (%) (Auto) 0.8 % Neutrophils # (Auto) 4.4 TH/MM3 Lymphocytes # (Auto) 1.8 TH/MM3 Monocytes # (Auto) 0.7 TH/MM3 Eosinophils # (Auto) 0.1 TH/MM3 Basophils # (Auto) 0.1 TH/MM3 CBC Comment DIFF FINAL Differential Comment Prothrombin Time 10.3 SEC Prothromb Time International Ratio 1.0 RATIO Activated Partial Thromboplast Time 19.6 SEC Blood Urea Nitrogen 11 MG/DL Creatinine 0.89 MG/DL Random Glucose 120 MG/DL Calcium Level 9.0 MG/DL Sodium Level 139 MEQ/L Potassium Level 3.8 MEQ/L Chloride Level 103 MEQ/L Carbon Dioxide Level 27.0 MEQ/L Anion Gap 9 MEQ/L Estimat Glomerular Filtration Rate 61 ML/MIN MDM Supervised Visit with MASTER: Yes Narrative Course I, Dr. Campbell, have reviewed the advance practice practitioner's documentation and am in agreement, met with the patient face to face, made the diagnosis, and the medical decision making was done by me. *My assessment and Findings: Patient was found to have a DVT in the leg. She is stable and in general would just receive anticoagulant therapy as an outpatient. Given her history of psychiatric illness and living at independent living, YISSEL Cameron will discuss with the primary physician to ensure follow-up and make sure they are comfortable with outpatient management. Haim Campbell MD Nov 10, 2017 18:19
[2017-11-10] MEDS ORDERED: HEPARIN SODIUM - IV 10,000 UNITS/10 ML VIAL IV PUSH ONE (18:30)
[2017-11-10] MEDS ORDERED: ESTR42.5V VAGINAL (18:51)
[2017-11-10] MEDS ORDERED: LOTR15T TOPICAL (18:51)
[2017-11-10] MEDS ORDERED: PROB1CHW2 PO (18:51)
[2017-11-10] MEDS ORDERED: BIOF1TAB PO (18:51)
[2017-11-10] MEDS ORDERED: CALC1TAB12 PO (18:51)
[2017-11-10] MEDS ORDERED: WARF4TAB52 PO (18:51)
[2017-11-10] MEDS ORDERED: CRANCAP2 PO (18:51)
[2017-11-10] MEDS ORDERED: CO Q100C9 PO (18:51)
[2017-11-10] MEDS ORDERED: VITATAB56 PO (18:51)
[2017-11-10 19:09] VITALS: BP 148/72; PULSE 77; RESP 18; O2SAT 98
[2017-11-10] MEDS ORDERED: HEPARIN-D5W 25,000 U/250 ML 250 ML IV PRN (19:45)
[2017-11-10] MEDS ORDERED: SODIUM CHLORIDE 0.9% FLUSH 10 ML FLUSH IV FLUSH PRN (19:45)
[2017-11-10] MEDS ORDERED: NALOXONE HCL 0.4 MG/ML AMP IV PUSH PRN (19:45)
[2017-11-10] MEDS ORDERED: ACETAMINOPHEN 325 MG TAB PO PRN (19:45)
[2017-11-10] MEDS: HEPARIN-D5W 25,000 U/250 ML 250 ML IV PRN (20:07)
[2017-11-10] MEDS: SODIUM CHLORIDE 0.9% FLUSH 10 ML FLUSH IV FLUSH SCH (20:09)
--- NOTE | 2017-11-10 20:32 | HHI.HP ---
[facility] Jesús Penaloza MD Admission Diagnosis DVT Diagnoses: Chief Complaint: LLE edema Travel History International Travel<30 Days: No Contact w/Intl Traveler <30 Da: No Traveled to Known Affected Are: No History of Present Illness 82 y/o female with a history of DVT, RESIGHINI, AFIB, Anxiety, HLD, TIA, GERD, and HTN presented to the ED with complaints of Left lower leg swelling. Patient states the pain is a 5/10, intermittent aching, worse with movement and walking , better with rest, no radiation or associated symptoms. Patient lives at [facility] in the independent living and does take Coumadin daily, but compliance may be an issue since her INR is 1.0. She follows outpatient with Dr. Penaloza. Dr. Penaloza requested she be abetted overnight with a heparin drip. She is sitting up eating dinner, denies any chest pain or SOB. She also has a history of chronic UTIs and a UA was down outpatient, patient denies dysuria but complains of frequency. Review of Systems Except as stated in HPI: all other systems reviewed are Neg Past Family Social History Past Medical History DVT RESIGHINI AFIB Anxiety HLD TIA GERD HTN Seizures Past Surgical History Cholecystectomy Reported Medications Reported Meds & Active Scripts Active Reported Estrace Vaginal (Estradiol) 0.01% Cream 1 Appl VAGINAL HS Co Q 10 (Coenzyme Q10 (Ubidecarenone)) 100 Mg-5 Unit Cap 1 Tab PO DAILY Acidophilus (Probiotic Product) 1 Chew 1 Tab PO DAILY Vitamin D-400 (Cholecalciferol) 400 Unit Tab 400 Units PO DAILY Malka-C 1,000 mg Tablet (Ascorbate Calcium/Bioflavonoid) 1,000 Mg-200 Mg Tablet 1 Tab PO DAILY Cranberry Urinary Comfort (Vitamins C & E) 1 Cap 1 Cap PO DAILY Warfarin 1 Mg Tab 1 Mg PO DAILY Calcium 500 +D (Calcium Carbonate-Cholecalciferol) 500-400 Mg-Unit Tab 1 Tab PO QID Lotrisone Topical (Betamethasone/Clotrimazole) 1-0.05% Cream 1 Applic TOPICAL BID Ativan (Lorazepam) 0.5 Mg Tab 0.5 Mg PO DAILY PRN Keppra (Levetiracetam) 500 Mg Tab 500 Mg PO Q4HR Plavix (Clopidogrel Bisulfate) 75 Mg Tab 75 Mg PO HS Klonopin (Clonazepam) 0.5 Mg Tab 0.5 Mg PO QID Atenolol 50 Mg Tab 50 Mg PO DAILY @ 0100 Norvasc (Amlodipine Besylate) 5 Mg Tab 5 Mg PO DAILY Allergies: Coded Allergies: Sulfa (Sulfonamide Antibiotics) (Unverified Allergy, Severe, "hives", ) iodine (Unverified Allergy, Severe, Hives, 11/10/17) latex (Unverified Allergy, Severe, SWELLING AT SITE; TINGLING LIPS, 11/10/17 ) nitrofurantoin (Unverified Allergy, Severe, hives, 11/10/17) ofloxacin (Unverified Allergy, Severe, "face blotched", 11/10/17) penicillin G (Unverified Allergy, Severe, unknown, 11/10/17) potassium iodide (Unverified Allergy, Severe, Hives, 11/10/17) povidone-iodine (Unverified Allergy, Severe, Hives, 11/10/17) sodium iodide (Unverified Allergy, Severe, Hives, 11/10/17) sodium iodide (Unverified Allergy, Severe, Hives, 11/10/17) erythromycin base (Unverified Adverse Reaction, Severe, "stomach problems ", 11/10/17) Uncoded Allergies: bandaids (Allergy, Severe, rash, 07/25/16) . Active Ordered Medications Current Medications Medications (Trade) Dose Ordered Sig/Katie Route Start Time Stop Time Status Last Admin Heparin Sodium/ Dextrose 250 ml @ 14 mls/hr TITRATE PRN IV 11/10/17 18:30 (NS Flush) 2 ml UNSCH PRN IV FLUSH 11/10/17 19:45 (NS Flush) 2 ml BID IV FLUSH 11/10/17 21:00 (Tylenol) 650 mg Q4H PRN PO 11/10/17 19:45 (Narcan Inj) 0.4 mg UNSCH PRN IV PUSH 11/10/17 19:45 Family History Patient denies any family history, no HD or cancer Social History Patient denies any tobacco, alcohol or illicit drug use Patient lives at the [facility], takes taxis to [facility] appointments. Physical Exam Vital Signs Vital Signs Date Time Temp Pulse Resp B/P (MAP) Pulse Ox O2 Delivery O2 Flow Rate FiO2 11/10/17 19:09 77 18 148/72 (97) 98 Room Air 11/10/17 15:20 98.4 84 20 156/72 (100) 97 Physical Exam GENERAL: This is a well-nourished, well-developed patient, in no apparent distress. SKIN: No rashes, ecchymoses or lesions. Cool and dry. HEAD: Atraumatic. Normocephalic. No temporal or scalp tenderness. EYES: Pupils equal round and reactive. Extraocular motions intact. CARDIOVASCULAR: Regular rate and rhythm without murmurs, gallops, or rubs. RESPIRATORY: Clear to auscultation. Breath sounds equal bilaterally. No wheezes , rales, or rhonchi. GASTROINTESTINAL: Abdomen soft, non-tender, nondistended. MUSCULOSKELETAL: LLE edema and tenderness NEUROLOGICAL: Awake and alert. Normal speech. Laboratory Laboratory Tests Test 11/10/17 16:34 White Blood Count 6.9 Red Blood Count 4.32 Hemoglobin 13.3 Hematocrit 39.4 Mean Corpuscular Volume 91.4 Mean Corpuscular Hemoglobin 30.9 Mean Corpuscular Hemoglobin Concent 33.8 Red Cell Distribution Width 13.3 Platelet Count 293 Mean Platelet Volume 7.5 Neutrophils (%) (Auto) 63.0 Lymphocytes (%) (Auto) 25.7 Monocytes (%) (Auto) 9.6 Eosinophils (%) (Auto) 0.9 Basophils (%) (Auto) 0.8 Neutrophils # (Auto) 4.4 Lymphocytes # (Auto) 1.8 Monocytes # (Auto) 0.7 Eosinophils # (Auto) 0.1 Basophils # (Auto) 0.1 CBC Comment DIFF FINAL Differential Comment Prothrombin Time 10.3 Prothromb Time International Ratio 1.0 Activated Partial Thromboplast Time 19.6 Blood Urea Nitrogen 11 Creatinine 0.89 Random Glucose 120 Calcium Level 9.0 Sodium Level 139 Potassium Level 3.8 Chloride Level 103 Carbon Dioxide Level 27.0 Anion Gap 9 Estimat Glomerular Filtration Rate 61 Result Diagram: 11/10/17 1634 11/10/17 1634 Imaging Last Impressions Lower Extremity Ultrasound 11/10/17 0000 Signed Impressions: CONCLUSION: Extensive left lower extremity DVT Caprini VTE Risk Assessment Caprini VTE Risk Assessment: Mod/High Risk (score >= 2) Caprini Risk Assessment Model Point Value = 1 Point Value = 2 Point Value = 3 Point Value = 5 Age 41-60 Minor surgery BMI > 25 kg/m2 Swollen legs Varicose veins or History of unexplained or recurrent spontaneous Oral contraceptives or hormone replacement Sepsis (< 1 month) Serious lung disease, including pneumonia (< 1 month) Abnormal pulmonary function Acute myocardial infarction Congestive heart failure (< 1 month) History of inflammatory bowel disease Medical patient at bed rest Age 61-74 Arthroscopic surgery Major open surgery (> 45 min) Laparoscopic surgery (> 45 min) Malignancy Confined to bed (> 72 hours) Immobilizing plaster cast Central venous access Age >= 75 History of VTE Family history of VTE Factor V Leiden Prothrombin [id number] Lupus anticoagulant Anticardiolipin antibodies Elevated serum homocysteine Heparin-induced thrombocytopenia Other congenital or acquired thrombophilia Stroke (< 1 month) Elective arthroplasty Hip, pelvis, or leg fracture Acute spinal cord injury (< 1 month) Prophylaxis Regimen Total Risk Factor Score Risk Level Prophylaxis Regimen 0-1 Low Early ambulation 2 Moderate Order ONE of the following: *Sequential Compression Device (SCD) *Heparin 5000 units SQ BID 3-4 Higher Order ONE of the following medications: *Heparin 5000 units SQ TID *Enoxaparin/Lovenox 40 mg SQ daily (WT < 150 kg, CrCl > 30 mL/min) *Enoxaparin/Lovenox 30 mg SQ daily (WT < 150 kg, CrCl > 10-29 mL/min) *Enoxaparin/Lovenox 30 mg SQ BID (WT < 150 kg, CrCl > 30 mL/min) AND/OR *Sequential Compression Device (SCD) 5 or more Highest Order ONE of the following medications: *Heparin 5000 units SQ TID (Preferred with Epidurals) *Enoxaparin/Lovenox 40 mg SQ daily (WT < 150 kg, CrCl > 30 mL/min) *Enoxaparin/Lovenox 30 mg SQ daily (WT < 150 kg, CrCl > 10-29 mL/min) *Enoxaparin/Lovenox 30 mg SQ BID (WT < 150 kg, CrCl > 30 mL/min) AND *Sequential Compression Device (SCD) Assessment and Plan Assessment and Plan 82 y/o female with a history of DVT, RESIGHINI, AFIB, Chronic UTIs, Anxiety, HLD, TIA , GERD, and HTN presented to the ED with complaints of Left lower leg swelling. DVT in a patient on Coumadin and subtherapeutic INR 1.0 -Heparin drip ordered, due to compliance patient may benefit with transition to Xarelto or Eliquis prior to discharge -Elevate extremity as tolerated HTN, chronic -Continue home medications Norvasc and atenolol -Monitor vitals Chronic UTIs, patient complaining of frequency, outpatient UA shows rare bacteria, no culture was completed -UA pending, hold antibiotics for now until culture results, no leukocytosis or fevers Other chronic medical conditions: Resume home medications and monitor Discussed Condition With Patient and RN Physician Certification 2 Midnight Certification Type: Admission for Inpatient Services Order for Inpatient Services The services are ordered in accordance with Medicare regulations or non- Medicare payer requirements, as applicable. In the case of services not specified as inpatient-only, they are appropriately provided as inpatient services in accordance with the 2-midnight benchmark. Estimated LOS (days): 2 days is the estimated time the patient will need to remain in the hospital, assuming treatment plan goals are met and no additional complications. Post-Hospital Plan: [facility] Rona Rincon Nov 10, 2017 20:31
[2017-11-10 20:48] VITALS: BP 161/72; PULSE 81; RESP 16; TEMP 98.5; O2SAT 97
[2017-11-10 21:00] VITALS: PULSE 76
[2017-11-10] MEDS: ESTRADIOL 0.1 MG/GM VAG CREAM 42.5 GM VAGINAL SCH (21:00)
[2017-11-10] MEDS: BETAMETHASONE/CLOTRIMAZOLE CREAM 15 GM TOPICAL SCH (21:00)
[2017-11-10] MEDS: clonazePAM 0.5 MG TAB PO SCH (21:17)
[2017-11-10] MEDS: LORazepam 0.5 MG TAB PO PRN (21:17)
[2017-11-10] MEDS: CLOPIDOGREL 75 MG TAB PO SCH (21:17)
[2017-11-10 22:23] LABS: BACTERIA, URINE RARE /hpf; BILIRUBIN, URINE NEG (NEG); BLOOD, URINE TRACE (NEG); GLUCOSE,URINE NEG (NEG); KETONE, URINE NEG (NEG); NITRITE,URINE NEG (NEG); PH, URINE 5.5 (5.0-8.5); SQUAMOUS EPITHELIAL CELL URINE 2 /hpf (0-5); URINE COLOR LIGHT-YELLOW (YELLW/STRAW); URINE LEUKOCYTE ESTERASE SMALL (NEG); WHITE BLOOD CELL CLUMPS RARE
[2017-11-10] MEDS: cefTRIAXone INJ 1,000 MG in SODIUM CHLORIDE 0.9% INJ 100 ML IV SCH (23:03)
[2017-11-10] MEDS: levETIRAcetam 500 MG TAB PO SCH (23:03)
[2017-11-11] VITALS (8 sets, daily range): BP systolic 122–161; BP diastolic 61–75; PULSE 61–76; RESP 16–22; TEMP 97.5–98.5; O2SAT 95–97
[2017-11-11 02:54] LABS: AUTOMATED NEUTROPHIL # 3.2 TH/MM3 (1.8-7.7); BASOPHIL # 0.1 TH/MM3 (0-0.2); BASOPHIL % 1.1 % (0.0-2.0); EOSINOPHIL # 0.2 TH/MM3 (0-0.4); EOSINOPHIL % 2.5 % (0.0-4.0); HEMATOCRIT 36.3 % (35.0-46.0); HEMOGLOBIN 12.3 GM/DL (11.6-15.3); LYMPH % 42.6 % (9.0-44.0); LYMPHOCYTE # 3.1 TH/MM3 (1.0-4.8); MEAN CORPUSCULAR HEMOGLOBIN 30.2 PG (27.0-34.0); MEAN CORPUSCULAR HGB CONC 33.9 % (32.0-36.0); MEAN PLATELET VOLUME 7.4 FL (7.0-11.0); MONO % 9.1 % (0.0-8.0); MONOCYTE # 0.7 TH/MM3 (0-0.9); NEUT % 44.7 % (16.0-70.0); PLATELET COUNT 255 TH/MM3 (150-450); RED BLOOD COUNT 4.07 MIL/MM3 (4.00-5.30); WHITE BLOOD COUNT 7.3 TH/MM3 (4.0-11.0)
[2017-11-11 03:16] LABS: BICARBONATE 25.5 MEQ/L (21.0-32.0); CALCIUM 8.9 MG/DL (8.5-10.1); CREATININE 0.93 MG/DL (0.50-1.00)
[2017-11-11] MEDS: levETIRAcetam 500 MG TAB PO SCH ×6 (04:17→22:59)
--- NOTE | 2017-11-11 08:57 | HHI.PR ---
Subjective Remarks The patient appears in not acute distress. She went to the bathroom had a normal colored bowel movement. No bleeding. Patient is very worried about taking anticoagulation. Says she is following with Dr. Banks neurology and was told not to take Coumadin because she has a history of bleeding her blood drain behind her eye. Says she wants to see Dr. Banks. Also will consult hematology oncology for anticoagulation recommendation discharge. Says she does not have any pain in her legs. If she is able to ambulate to the bathroom without any problems. No shortness of breath. No tachycardia. No headaches. No fever or chills. No chest pain. No new motor or sensory deficits. Objective Vitals Vital Signs Date Time Temp Pulse Resp B/P (MAP) Pulse Ox O2 Delivery O2 Flow Rate FiO2 11/11/17 08:05 97.8 70 20 150/68 (95) 96 11/11/17 04:40 98.5 61 17 146/67 (93) 96 11/11/17 00:01 98.4 72 17 140/65 (90) 95 11/10/17 21:00 76 11/10/17 20:48 98.5 81 16 161/72 (101) 97 11/10/17 20:37 11/10/17 19:09 77 18 148/72 (97) 98 Room Air 11/10/17 15:20 98.4 84 20 156/72 (100) 97 I/O 11/10/17 11/10/17 11/10/17 11/11/17 11/11/17 11/11/17 07:00 15:00 23:00 07:00 15:00 23:00 Intake Total 477 ml Balance 477 ml Intake Oral 240 ml IV Total 237 ml Result Diagram: 11/11/17 0238 11/11/17 0238 Imaging Last Impressions Lower Extremity Ultrasound 11/10/17 0000 Signed Impressions: CONCLUSION: Extensive left lower extremity DVT Objective Remarks GENERAL: This is a well-nourished, well-developed patient, in no apparent distress. CARDIOVASCULAR: Regular rate and rhythm without murmurs, gallops, or rubs. RESPIRATORY: Clear to auscultation. Breath sounds equal bilaterally. No wheezes , rales, or rhonchi. GASTROINTESTINAL: Abdomen soft, non-tender, nondistended. MUSCULOSKELETAL: LLE edema and tenderness NEUROLOGICAL: Awake and alert. Normal speech. A/P Assessment and Plan 82 y/o female with a history of DVT, PENOBSCOT, AFIB, Chronic UTIs, Anxiety, HLD, TIA , GERD, and HTN presented to the ED with complaints of Left lower leg swelling. DVT. However patient says she is not taking Coumadin as she has a history of hemorrhagic stroke and follows with Dr. Banks. Says bleeding was due to Coumadin , says she had bleeding behind her eye from warfarin use. Patient requests to see Dr. Banks. Consult her neurology Dr Banks. INR 1.0 on admission Also consult hematology oncology for anticoagulation choice recommendations at discharge Currently on Heparin drip, patient may benefit with transition to Xarelto or Eliquis prior to discharge Elevate extremity as tolerated UTI with blood and rare bacteria and urinary frequency Continue Rocephin due to symptoms and allergies, follow cultures Chronic UTIs, patient complaining of frequency, outpatient UA shows rare bacteria, no culture was completed -UA pending, hold antibiotics for now until culture results, no leukocytosis or fevers HTN, chronic Continue home medications Norvasc and atenolol -Monitor vitals Other chronic medical conditions: Resume home medications as indicated and monitor Discussed Condition With Patient, nurse DVT ppx on heparin drip Deepthi Hui MD Nov 11, 2017 08:57
[2017-11-11] MEDS ORDERED: ATENOLOL 50 MG TAB PO SCH (09:00)
[2017-11-11] MEDS ORDERED: ASCORBATE CALCIUM PO SCH (09:00)
[2017-11-11] MEDS ORDERED: [UNRECOGNIZED DRUG - OTHER] PO SCH (09:00)
[2017-11-11] MEDS ORDERED: BIOFLAVONOID PO SCH (09:00)
[2017-11-11] MEDS: LACTOBACILLUS ACIDOPHILUS TAB PO SCH (09:18)
[2017-11-11] MEDS: amLODIPine BESYLATE 5 MG TAB PO SCH (09:18)
[2017-11-11] MEDS: CHOLECALCIFEROL (VIT D3) 400 UNIT TAB PO SCH (09:18)
[2017-11-11] MEDS: clonazePAM 0.5 MG TAB PO SCH ×4 (09:18→20:17)
[2017-11-11] MEDS: SODIUM CHLORIDE 0.9% FLUSH 10 ML FLUSH IV FLUSH SCH ×2 (09:18→20:17)
[2017-11-11] MEDS: BETAMETHASONE/CLOTRIMAZOLE CREAM 15 GM TOPICAL SCH ×2 (09:19→20:23)
[2017-11-11] MEDS: HEPARIN-D5W 25,000 U/250 ML 250 ML IV PRN (15:20)
[2017-11-11] MEDS: ATENOLOL 50 MG TAB PO SCH (20:17)
[2017-11-11] MEDS: CLOPIDOGREL 75 MG TAB PO SCH (20:18)
[2017-11-11] MEDS: ESTRADIOL 0.1 MG/GM VAG CREAM 42.5 GM VAGINAL SCH (20:22)
--- NOTE | 2017-11-11 22:03 | MB ---
cc: Madison Albrecht MD, Ruby Anne E MD Cosma,Deepthi BAIG DATE: 11/11/2017 REFERRING PHYSICIAN: Chhaya Hui MD CHIEF COMPLAINT: Dr. Hui requests a consultation for Mrs. Hendrix regarding newly diagnosed extensive left lower extremity deep vein thromboses. HISTORY OF PRESENT ILLNESS: Ms. Hendrix is an 82-year-old woman, well known patient to Dr. Jesús Penaloza with multiple medical problems. She has a history of atrial fibrillation, anxiety, cardiovascular disease, hypercholesterolemia, history of TIA, diabetes, fibromyalgia, gastroesophageal reflux, hypertension, costochondritis. She was sent to the emergency room for increasing leg swelling. She reports that the leg swelling in the left leg has become worse over the last 2 days prior to presentation. In the emergency room, an ultrasound of the left lower extremity was performed that showed an extensive left lower extremity deep vein thrombosis. She was started on unfractionated heparin. It is not clear if she was suppose to be on warfarin prior. She was not taking it. She has a remote history of deep vein thromboses 3 years ago. She apparently had a clot she recalls in the same left lower extremity. She does not have any recollection of how long she was treated with anticoagulation. The only other ultrasound of the lower extremity available was from 05/29/2012. That was negative for a deep vein thrombosis. She reports being on aspirin and Plavix as recommended by Dr. Banks. She saw Dr. Banks, the neurologist, recently. She admits to not taking her aspirin for several months. She was quite busy with her . She reports a bleed behind the right eye. 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 Dr. Rudd wanted her on Eliquis for her heart, presumambly for atrial fibrillation but she could not afford it with her insurance for this reason she is on the ASA and Plavis. Hematology/Oncology is consulted regarding options for anticoagulation. PAST MEDICAL HISTORY: As described above. PAST SURGICAL HISTORY: Cholecystectomy. SOCIAL HISTORY: She is and lives with her in assisted living facility. Her is acutely ill in the hospital. She denies any tobacco, alcohol or illicit drug use. She is independent living at [facility]. FAMILY HISTORY: No family history of cancer. ALLERGIES: TO MULTIPLE MEDICATIONS LISTED SULFA, IODINE, LATEX, NITROFURANTOIN, OFLOXIN, PENICILLIN G, POTASSIUM, POVIDONE, IODINE, SODIUM IODIDE, ERYTHROMYCIN. CURRENT MEDICATIONS: 1. Atenolol 50 mg b.i.d. 2. Norvasc 5 mg daily. 3. Vitamin D3 4. Lactinex 5. Keppra. 6. Ceftriaxone. 7. Klonopin. 8. Plavix. PHYSICAL EXAMINATION: VITAL SIGNS: Temperature 97.6, heart rate 76, respiratory rate 17, blood pressure 137/67, saturation 95%. GENERAL: Mrs. Hendrix is a well-developed, elderly woman in no acute distress. She is suspicious, guarded. She is anxious. HEENT: Pupils are round, reactive to light and accommodation. Oropharynx is clear. NECK: Supple. LUNGS: Clear to auscultation. CARDIOVASCULAR: Reveals normal rate and rhythm. ABDOMEN: Soft, benign. MUSCULOSKELETAL: With asymmetry left leg more prominent than the right. There are chronic venous changes in the left leg. NEUROLOGIC: Moves all 4 extremities. She ambulates with a walker for stability. LABORATORY DATA: Renal function is normal. Creatinine 0.93. Estimated glomerular filtration rate 58. CBC is normal. Liver functions are normal. ASSESSMENT AND PLAN: Ms Hendrix is an 82-year-old woman with multiple medical problems. She has a remote history of left lower extremity deep vein thrombosis treated and was taken off anticoagulant therapy. She seems to be on dual antiplatelet prophylaxis for stroke/transient ischemic attack, arrythmia and/or coronary disease. She was on aspirin and Plavix. But not compliant with ASA. Despite the compliance with the Plavix, she developed a left lower extremity deep vein thrombosis recurrence. She admits to decrease in physical activity. She used [place] daily [place] At the [facility], she stopped walking. She can walk to the dining [place] and back at [facility]. However, she spends much of the day sitting in a chair with her feet up on pillow an ottoman. This position probably lends itself to venostasis and recurrence of a deep vein thrombosis. There seems to be no other precipitating factor. We had an extensive discussion about the options for anticoagulant therapy. She does not believe she can give herself a shot. Her used to be able to give her a shot for parenteral low molecular weight heparin. Her currently is in the hospital/hospice. We discussed the option of warfarin, which she declined. She states that she does not want warfarin and that the new oral anticoagulants are too expensive, not covered by her insurance. She would take it if it were covered. Her takes Eliquis under hospice care. In essence, we discussed extensively that an options for anticoagulant therapy at least for 3 to 6 months will be needed for her recurrent left lower extremity deep vein thrombosis. Ultimately, she will need secondary prophylaxis. She would like to make the decision with Dr. Banks, and repeated questioned me when Dr. Banks was coming. She asserts that Dr. Banks will tell her what anticoagulant therapy that is good for her and she will believe that opinion. I tried to explain the differences in the anticoagulant therapy. We may need help from patient case manager to help facilitate getting her medication and improving her compliance. Until Dr. Banks's consultation continue on UFH. I will obtain ultrasound of the contralateral right leg to make sure there is not also a deep vein thrombosis on the other side. Her questions were answered to her satisfaction. MD THONY Faulkner/ , 09:28 PM , 10:02 PM MTDEdgardo
[2017-11-11] MEDS: cefTRIAXone INJ 1,000 MG in SODIUM CHLORIDE 0.9% INJ 100 ML IV SCH (22:58)
[2017-11-12] VITALS (7 sets, daily range): BP systolic 119–163; BP diastolic 60–78; PULSE 60–73; RESP 16–20; TEMP 97.2–97.8; O2SAT 94–100
[2017-11-12] MEDS: levETIRAcetam 500 MG TAB PO SCH ×6 (03:51→23:46)
[2017-11-12 06:20] LABS: AUTOMATED NEUTROPHIL # 3.2 TH/MM3 (1.8-7.7); BASOPHIL # 0.1 TH/MM3 (0-0.2); BASOPHIL % 0.8 % (0.0-2.0); EOSINOPHIL # 0.2 TH/MM3 (0-0.4); EOSINOPHIL % 3.3 % (0.0-4.0); HEMATOCRIT 38.4 % (35.0-46.0); HEMOGLOBIN 13.2 GM/DL (11.6-15.3); LYMPH % 39.5 % (9.0-44.0); LYMPHOCYTE # 2.7 TH/MM3 (1.0-4.8); MEAN CELL VOLUME 90.7 FL (80.0-100.0); MEAN CORPUSCULAR HEMOGLOBIN 31.1 PG (27.0-34.0); MEAN CORPUSCULAR HGB CONC 34.4 % (32.0-36.0); MEAN PLATELET VOLUME 7.9 FL (7.0-11.0); MONO % 9.1 % (0.0-8.0); MONOCYTE # 0.6 TH/MM3 (0-0.9); NEUT % 47.3 % (16.0-70.0); PLATELET COUNT 254 TH/MM3 (150-450); RED BLOOD COUNT 4.23 MIL/MM3 (4.00-5.30); RED CELL DISTRIBUTION WIDTH 13.1 % (11.6-17.2); WHITE BLOOD COUNT 6.7 TH/MM3 (4.0-11.0)
[2017-11-12 06:48] LABS: BICARBONATE 26.7 MEQ/L (21.0-32.0); CALCIUM 9.2 MG/DL (8.5-10.1); CREATININE 0.84 MG/DL (0.50-1.00)
--- NOTE | 2017-11-12 06:57 | HHI.PR ---
Subjective Remarks Patient seen and examined this morning, their vitals are stable and the patient is afebrile. Eating breakfast, feels comfortable. Wants to know if DVT is in both legs or just right. Had US this morning. No complaints or concerns. Objective Vital Signs Date Time Temp Pulse Resp B/P (MAP) Pulse Ox O2 Delivery O2 Flow Rate FiO2 11/12/17 04:00 97.6 62 17 136/66 (89) 95 11/12/17 00:04 64 11/12/17 00:01 97.4 65 18 143/70 (94) 95 11/11/17 22:23 Room Air 11/11/17 20:00 97.6 76 17 137/67 (90) 95 11/11/17 19:58 68 11/11/17 16:00 97.5 66 22 161/75 (103) 97 11/11/17 15:52 17 11/11/17 13:20 Room Air 11/11/17 11:39 98.2 69 16 122/61 (81) 95 11/11/17 08:05 97.8 70 20 150/68 (95) 96 I/O 11/11/17 11/11/17 11/11/17 11/12/17 11/12/17 11/12/17 07:00 15:00 23:00 07:00 15:00 23:00 Intake Total 477 ml 360 ml 420 ml Balance 477 ml 360 ml 420 ml Intake Oral 240 ml 360 ml 320 ml IV Total 237 ml 100 ml # Voids 3 5 # Bowel Movements 1 Result Diagram: 11/12/17 0532 11/12/17 0532 Imaging Last Impressions Lower Extremity Ultrasound 11/10/17 0000 Signed Impressions: CONCLUSION: Extensive left lower extremity DVT Objective Remarks GENERAL: Well-appearing, no acute distress SKIN: Warm and dry. HEAD: Normocephalic. EYES: No scleral icterus. No injection or drainage. NECK: Supple, trachea midline. No JVD or lymphadenopathy. CARDIOVASCULAR: Regular rate and rhythm without murmurs, gallops, or rubs. RESPIRATORY: Breath sounds equal bilaterally. No accessory muscle use. GASTROINTESTINAL: Abdomen soft, non-tender, nondistended. MUSCULOSKELETAL: Bilat LE edema, non pitting, no calf tenderness, no palpable cord. A/P Problem List: (1) DVT (deep venous thrombosis) ICD Code: I82.409 - Acute embolism and thrombosis of unspecified deep veins of unspecified lower extremity Status: Acute (2) Urinary tract infection ICD Code: N39.0 - Urinary tract infection, site not specified Status: Acute Assessment and Plan 82-year-old female with history of DVT, A. fib, 3 times daily, and hypertension presents to the ED with left lower extremity swelling, found to have extensive DVT Left lower extremity DVT Patient with a history of DVT. It is unclear, but it appears that she was on Coumadin at one point, at another time she was on aspirin and Plavix. She had not been consistent with taking her aspirin for several months. The patient follows with Dr. Banks. Patient requested to see Dr. Banks yesterday so he was consulted Hematology oncology was consulted for anticoagulation recommendations: Was discussed with the patient that she needs to be on anticoagulation therapy for history of 6 months. She declined Coumadin. She did not want to give herself a shot. She does decline the newer anticoagulation agent such her insurance does not cover them. Ultrasound of the contralateral right leg was ordered to make sure that there is no DVT there. Patient again wishes to discuss her anticoagulations with Dr. Banks before making a decision. Currently she is on heparin drip UTI Currently on Rocephin, has a history of chronic UTIs Urine culture pending Hypertension Continue home atenolol and Norvasc DVT prophylaxis: Heparin Discharge Planning d/c pending anticoagulation reccs Problem Qualifiers (1) DVT (deep venous thrombosis): Qualified Codes: I82.4Z2 - Acute embolism and thrombosis of unspecified deep veins of left distal lower extremity Eden Hale MD Nov 12, 2017 06:57
--- NOTE | 2017-11-12 08:52 | RADRPT ---
EXAM DATE: 11/12/2017 8:45 AM EDT AGE/SEX: 82 years / Female INDICATIONS: Right leg swelling. CLINICAL DATA: This is the patient's subsequent encounter. Patient reports that signs and symptoms h ave been present for 1 day and indicates a pain score of 0/10. MEDICAL/SURGICAL HISTORY: Hypertension. Gastroesophageal reflux disease. Hypercholesterolemia . Left leg DVT. CVA. A-fib. Fibromyalgia. Anticoagulant therapy. Cholecystectomy. Left ankle. COMPARISON: No prior exams available for comparison. TECHNIQUE: Venous ultrasound of both lower extremities was performed from the inguinal ligament to t he proximal calf. Real-time, color Doppler and spectral tracing, compression and augmentation techni ques were used. FINDINGS: There is normal compressibility of the deep venous system from the inguinal region to the proximal ca lf. No echogenic clot is seen in the lumen of the common femoral, femoral, popliteal, and posterior tibial veins. There is a normal response of the venous system to proximal and distal augmentation an d respiration. CONCLUSION: 1. The study is negative for lower extremity deep venous thrombosis. Electronically signed by: Ihsan Drummond MD 11/12/2017 8:50 AM EDT
[2017-11-12] MEDS: BETAMETHASONE/CLOTRIMAZOLE CREAM 15 GM TOPICAL SCH ×2 (09:00→21:00)
[2017-11-12] MEDS: LACTOBACILLUS ACIDOPHILUS TAB PO SCH (09:41)
[2017-11-12] MEDS: SODIUM CHLORIDE 0.9% FLUSH 10 ML FLUSH IV FLUSH SCH ×2 (09:42→20:33)
[2017-11-12] MEDS: amLODIPine BESYLATE 5 MG TAB PO SCH (09:42)
[2017-11-12] MEDS: CHOLECALCIFEROL (VIT D3) 400 UNIT TAB PO SCH (09:42)
[2017-11-12] MEDS: clonazePAM 0.5 MG TAB PO SCH ×4 (09:42→20:32)
[2017-11-12] MEDS: ATENOLOL 50 MG TAB PO SCH ×2 (09:42→20:32)
--- NOTE | 2017-11-12 11:47 | PD.ONC.PN ---
Subjective Subjective Remarks AFebrile overnight. Patient resting in room. tolerating heparin gtt. states she has not yet spoken with Dr. Banks about which NOAC she should start. Objective Data Date Time Temp Pulse Resp B/P (MAP) Pulse Ox O2 Delivery O2 Flow Rate FiO2 11/12/17 11:34 Room Air 11/12/17 11:34 97.8 65 16 129/60 (83) 96 11/12/17 08:00 97.7 60 17 163/70 (101) 95 11/12/17 04:00 97.6 62 17 136/66 (89) 95 11/12/17 00:04 64 11/12/17 00:01 97.4 65 18 143/70 (94) 95 11/11/17 22:23 Room Air 11/11/17 20:00 97.6 76 17 137/67 (90) 95 11/11/17 19:58 68 11/11/17 16:00 97.5 66 22 161/75 (103) 97 11/11/17 15:52 17 11/11/17 13:20 Room Air 11/12/17 11/12/17 11/12/17 07:00 15:00 23:00 Intake Total 420 ml 120 ml Balance 420 ml 120 ml Result Diagram: 11/12/17 0532 11/12/17 0532 Laboratory Results Laboratory Tests Test 11/11/17 16:25 11/12/17 05:32 Activated Partial Thromboplast Time 50.7 SEC 53.6 SEC White Blood Count 6.7 TH/MM3 Red Blood Count 4.23 MIL/MM3 Hemoglobin 13.2 GM/DL Hematocrit 38.4 % Mean Corpuscular Volume 90.7 FL Mean Corpuscular Hemoglobin 31.1 PG Mean Corpuscular Hemoglobin Concent 34.4 % Red Cell Distribution Width 13.1 % Platelet Count 254 TH/MM3 Mean Platelet Volume 7.9 FL Neutrophils (%) (Auto) 47.3 % Lymphocytes (%) (Auto) 39.5 % Monocytes (%) (Auto) 9.1 % Eosinophils (%) (Auto) 3.3 % Basophils (%) (Auto) 0.8 % Neutrophils # (Auto) 3.2 TH/MM3 Lymphocytes # (Auto) 2.7 TH/MM3 Monocytes # (Auto) 0.6 TH/MM3 Eosinophils # (Auto) 0.2 TH/MM3 Basophils # (Auto) 0.1 TH/MM3 CBC Comment DIFF FINAL Differential Comment Blood Urea Nitrogen 11 MG/DL Creatinine 0.84 MG/DL Random Glucose 146 MG/DL Calcium Level 9.2 MG/DL Sodium Level 140 MEQ/L Potassium Level 3.8 MEQ/L Chloride Level 102 MEQ/L Carbon Dioxide Level 26.7 MEQ/L Anion Gap 11 MEQ/L Estimat Glomerular Filtration Rate 65 ML/MIN Culture Results Microbiology Date/Time Source Procedure Growth Status 11/10/17 22:06 Urine Clean Catch Urine Culture Pending Received Imaging Studies Last 24 hours Impressions Lower Extremity Ultrasound 11/12/17 0000 Signed Impressions: CONCLUSION: 1. The study is negative for lower extremity deep venous thrombosis. Administered Medications Medications (Trade) Dose Ordered Sig/Katie Route PRN Reason Start Time Stop Time Status Last Admin Dose Admin Heparin Sodium/ Dextrose 250 ml @ 14 mls/hr TITRATE PRN IV Coagulation Management 11/10/17 18:30 11/11/17 15:20 Sodium Chloride (NS Flush) 2 ml BID IV FLUSH 11/10/17 21:00 11/12/17 09:42 Acetaminophen (Tylenol) 650 mg Q4H PRN PO TEMP > 100.4 11/10/17 19:45 11/11/17 04:18 Amlodipine Besylate (Norvasc) 5 mg DAILY PO 11/11/17 09:00 11/12/17 09:42 Betamethasone/ Clotrimazole (Lotrisone Cream) 1 applic BID TOPICAL 11/10/17 21:00 11/11/17 09:19 Cholecalciferol (Vitamin D3) 400 units DAILY PO 11/11/17 09:00 11/12/17 09:42 Clonazepam (KlonoPIN) 0.5 mg QID PO 11/10/17 21:00 11/12/17 09:42 Clopidogrel Bisulfate (Plavix) 75 mg HS PO 11/10/17 21:00 11/11/17 20:18 Levetriacetam (Keppra) 500 mg Q4HR PO 11/11/17 00:00 11/12/17 09:42 Lorazepam (Ativan) 0.5 mg DAILY PRN PO ANXIETY AND/OR AGITATION 11/10/17 20:15 11/10/17 21:17 Lactobacillus Acidophilus (Lactinex) 1 tab DAILY PO 11/11/17 09:00 11/12/17 09:41 Ceftriaxone Sodium 1000 mg/ Sodium Chloride 100 ml @ 200 mls/hr Q24H IV 11/10/17 22:45 11/11/17 22:58 Atenolol (Tenormin) 50 mg BID PO 11/11/17 21:00 11/12/17 09:42 Objective Remarks GENERAL: Pleasant elderly female, sitting up in bed in nad. SKIN: Warm and dry. HEAD: Normocephalic. EYES: No scleral icterus. No injection or drainage. NECK: Supple, trachea midline. CARDIOVASCULAR: +S1/S2 RESPIRATORY: Breath sounds equal bilaterally. No accessory muscle use. GASTROINTESTINAL: Abdomen soft, non-tender, nondistended. EXTREMITIES: No cyanosis NEUROLOGICAL: awake and alert. normal speech. moving all extremities. Assessment/Plan Assessment 82y/o female with newly diagnosed extensive left lower extremity deep vein thromboses. history of atrial fibrillation, anxiety, cardiovascular disease, hypercholesterolemia, history of TIA, diabetes, fibromyalgia, gastroesophageal reflux, hypertension, costochondritis. remote history of deep vein thromboses 3 years ago. Plan 1. LLE DVT: continue heparin gtt. can be started on Eliquis PO if ok with Dr. Banks 2. monitor CBC Attending Statement The exam, history, and the medical decision-making described in the above note were completed with the assistance of the mid-level provider. I reviewed and agree with the findings presented. I attest that I had a [id number] encounter with the patient on the same day, and personally performed and documented my assessment and findings in the medical record. Still looking for Dr. Banks, she asks everyone who comes in to see her including the Case Management. Assured her he was consulted. Drug coverage confirmed. She agreed to the Eliquis- DC UFH and start Eliquis now. Observe over night. Noted age but no dose adjustment yet. Very anxious, now wants Dr. Rudd involved, but assured her that the wafer cleaner can help her with this decision. She may follow up w/ Dr. Rudd as out pt. US R leg negative. Anticipate anticoagulation with Eliquis alone, antiplatelet and NOAC increase risk of bleeding. Francine Olivier Nov 12, 2017 11:47 Madison Albrecht MD Nov 12, 2017 14:11
[2017-11-12] MEDS: APIXABAN 5 MG TABLET PO SCH ×2 (14:56→20:32)
[2017-11-12] MEDS: LORazepam 0.5 MG TAB PO PRN (14:56)
--- NOTE | 2017-11-12 19:12 | MB ---
cc: Quintin Banks MD, PhD Quintin Banks MD PhD DATE: 11/12/2017 REASON FOR CONSULTATION: Patient with history of hemorrhagic stroke, now with thrombosis requiring anticoagulation for DVT. HISTORY OF PRESENT ILLNESS: Ms. Hendrix is a very pleasant 82-year-old woman known to me who has a history of previous stroke in the distant past, as well as focal seizures. She takes Plavix and aspirin as well as Keppra and has been stable. 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 The patient has been started on Eliquis 5 mg b.i.d. She continues on the Plavix 75 mg daily. NEUROLOGICAL EXAMINATION: VITAL SIGNS: Her blood pressure is 125/61, pulse is 65, respiratory rate is 20, temperature 97.6 degrees. Higher cortical function: She is alert. She is fully oriented. Her speech is fluent. Cranial nerves 2-12 are normal. On motor exam she has no focal deficits with normal strength and tone of all groups in the upper extremities. LABORATORY DATA: The white count is 6700, hemoglobin 13.2, hematocrit 38.4%, platelet count 254,000. PT 10.3, INR 1, aPTT 19.6. She previously was on heparin, but this has been converted to Eliquis. Sodium is 139, potassium 3.8, chloride 103, CO2 of 27, BUN is 11, creatinine 0.89, GFR 61, glucose 120. IMPRESSION: The patient is stable neurologically. She has a history of a remote infarction in the distant past, as well as focal seizures which have been stable. From the neurologic standpoint, there is contraindication to starting the patient on Eliquis long-term and I did discuss this with the patient for her deep vein thrombosis, that she should continue with the Eliquis. I would recommend stopping the Plavix and the aspirin while she is on the Eliquis. Continue the Keppra at the current dose, as this has been very effective in controlling her focal seizures. Thank you for asking me to see this nice patient. Quintin Banks MD, PhD ASHLEY/ , 06:04 PM , 07:12 PM
[2017-11-12] MEDS: ESTRADIOL 0.1 MG/GM VAG CREAM 42.5 GM VAGINAL SCH (20:36)
[2017-11-12] MEDS: cefTRIAXone INJ 1,000 MG in SODIUM CHLORIDE 0.9% INJ 100 ML IV SCH (23:15)
[2017-11-13] VITALS (7 sets, daily range): BP systolic 113–154; BP diastolic 59–78; PULSE 60–69; RESP 17–18; TEMP 97.2–97.8; O2SAT 95–97
[2017-11-13] MEDS: levETIRAcetam 500 MG TAB PO SCH ×5 (05:00→20:55)
[2017-11-13 08:33] LABS: AUTOMATED NEUTROPHIL # 3.3 TH/MM3 (1.8-7.7); BASOPHIL % 0.9 % (0.0-2.0); EOSINOPHIL # 0.2 TH/MM3 (0-0.4); EOSINOPHIL % 3.7 % (0.0-4.0); LYMPH % 26.3 % (9.0-44.0); LYMPHOCYTE # 1.4 TH/MM3 (1.0-4.8); MEAN CELL VOLUME 90.1 FL (80.0-100.0); MEAN CORPUSCULAR HEMOGLOBIN 30.7 PG (27.0-34.0); MEAN CORPUSCULAR HGB CONC 34.1 % (32.0-36.0); MEAN PLATELET VOLUME 7.5 FL (7.0-11.0); MONO % 9.7 % (0.0-8.0); MONOCYTE # 0.5 TH/MM3 (0-0.9); NEUT % 59.4 % (16.0-70.0); PLATELET COUNT 231 TH/MM3 (150-450); RED BLOOD COUNT 4.22 MIL/MM3 (4.00-5.30); RED CELL DISTRIBUTION WIDTH 13.2 % (11.6-17.2); WHITE BLOOD COUNT 5.5 TH/MM3 (4.0-11.0)
[2017-11-13 08:40] LABS: INTERNATIONAL NORMALIZED RATIO 1.1 RATIO; PROTHROMBIN TIME - PATIENT 10.7 SEC (9.8-11.6)
[2017-11-13 08:46] LABS: BICARBONATE 26.2 MEQ/L (21.0-32.0); CALCIUM 8.7 MG/DL (8.5-10.1); CREATININE 0.82 MG/DL (0.50-1.00)
[2017-11-13] MEDS: BETAMETHASONE/CLOTRIMAZOLE CREAM 15 GM TOPICAL SCH ×2 (09:00→20:56)
[2017-11-13] MEDS: LACTOBACILLUS ACIDOPHILUS TAB PO SCH (09:01)
[2017-11-13] MEDS: CHOLECALCIFEROL (VIT D3) 400 UNIT TAB PO SCH (09:01)
[2017-11-13] MEDS: clonazePAM 0.5 MG TAB PO SCH ×4 (09:01→20:52)
[2017-11-13] MEDS: ATENOLOL 50 MG TAB PO SCH ×2 (09:01→20:52)
[2017-11-13] MEDS: SODIUM CHLORIDE 0.9% FLUSH 10 ML FLUSH IV FLUSH SCH ×2 (09:02→20:55)
[2017-11-13] MEDS: APIXABAN 5 MG TABLET PO SCH ×2 (09:02→20:52)
[2017-11-13] MEDS: LORazepam 0.5 MG TAB PO PRN (09:02)
[2017-11-13] MEDS: amLODIPine BESYLATE 5 MG TAB PO SCH (09:02)
--- NOTE | 2017-11-13 10:13 | HHI.PR ---
Subjective Remarks Patient seen and examined this morning, their vitals are stable and the patient is afebrile. Resting comfortably. Lives at [facility]. States she doesn't get much help there and is unsure if she can get around independently. Left leg hurts. Objective Vital Signs Date Time Temp Pulse Resp B/P (MAP) Pulse Ox O2 Delivery O2 Flow Rate FiO2 11/13/17 04:15 97.6 64 17 140/62 (88) 97 11/13/17 00:23 97.3 64 17 140/65 (90) 95 11/12/17 20:45 97.5 73 17 119/78 (92) 94 11/12/17 16:00 97.6 65 20 125/61 (82) 95 11/12/17 11:34 Room Air 11/12/17 11:34 97.8 65 16 129/60 (83) 96 I/O 11/12/17 11/12/17 11/12/17 11/13/17 11/13/17 11/13/17 07:00 15:00 23:00 07:00 15:00 23:00 Intake Total 420 ml 120 ml 1600 ml 360 ml Output Total 1600 ml Balance 420 ml 120 ml 0 ml 360 ml Intake Oral 320 ml 120 ml 1600 ml 360 ml IV Total 100 ml Output Urine Total 1600 ml # Voids 5 2 # Bowel Movements 2 0 Result Diagram: 11/13/17 0822 11/13/17 0822 Imaging Last Impressions Lower Extremity Ultrasound 11/12/17 0000 Signed Impressions: CONCLUSION: 1. The study is negative for lower extremity deep venous thrombosis. Objective Remarks GENERAL: Well-appearing, no acute distress SKIN: Warm and dry. HEAD: Normocephalic. EYES: No scleral icterus. No injection or drainage. NECK: Supple, trachea midline. No JVD or lymphadenopathy. CARDIOVASCULAR: Regular rate and rhythm without murmurs, gallops, or rubs. RESPIRATORY: Breath sounds equal bilaterally. No accessory muscle use. GASTROINTESTINAL: Abdomen soft, non-tender, nondistended. MUSCULOSKELETAL: Bilat LE edema, non pitting, no calf tenderness, no palpable cord. A/P Problem List: (1) DVT (deep venous thrombosis) ICD Code: I82.409 - Acute embolism and thrombosis of unspecified deep veins of unspecified lower extremity Status: Acute (2) Urinary tract infection ICD Code: N39.0 - Urinary tract infection, site not specified Status: Acute Assessment and Plan 82-year-old female with history of DVT, A. fib, 3 times daily, and hypertension presents to the ED with left lower extremity swelling, found to have extensive DVT Left lower extremity DVT -Hematology oncology was consulted for anticoagulation recommendations: Was discussed with the patient that she needs to be on anticoagulation therapy for history of 6 months. She declined Coumadin. She did not want to give herself a shot. She does decline the newer anticoagulation agent such her insurance does not cover them. Ultrasound of the contralateral right leg showed no DVT. Patient again wishes to discuss her anticoagulations with Dr. Banks before making a decision. -Patient has been seen and evaluated by Dr. Banks. She has a history of a remote infarct in the past as well as focal simple seizures that have been stable. Per Dr. Banks there is no contraindication to starting the patient on Eliquis long-term. He recommended that the patient stop the Plavix and aspirin while on Eliquis. UTI Currently on Rocephin (started 11/10), has a history of chronic UTIs Urine culture growing gram negative marialuisa Hypertension Continue home atenolol and Norvasc DVT prophylaxis: on eliquis Discharge Planning PT to re-eval for dc needs Problem Qualifiers (1) DVT (deep venous thrombosis): Qualified Codes: I82.4Z2 - Acute embolism and thrombosis of unspecified deep veins of left distal lower extremity Eden Hale MD Nov 13, 2017 10:13
--- NOTE | 2017-11-13 11:20 | PD.ONC.PN ---
Subjective Subjective Remarks Afebrile overnight. Patient started on Eliquis yesterday. she is tolerating it without difficulty. she notes that the swelling in her left leg has significantly improved today. however, she notes that she has also noticed some burning sensation in the foot when she bears weight on it. Objective Data Date Time Temp Pulse Resp B/P (MAP) Pulse Ox O2 Delivery O2 Flow Rate FiO2 11/13/17 08:00 97.2 67 17 154/70 (98) 97 11/13/17 04:15 97.6 64 17 140/62 (88) 97 11/13/17 00:23 97.3 64 17 140/65 (90) 95 11/12/17 20:45 97.5 73 17 119/78 (92) 94 11/12/17 16:00 97.6 65 20 125/61 (82) 95 11/12/17 11:34 Room Air 11/12/17 11:34 97.8 65 16 129/60 (83) 96 11/13/17 11/13/17 11/13/17 07:00 15:00 23:00 Intake Total 360 ml Balance 360 ml Result Diagram: 11/13/17 0822 11/13/17 0822 Laboratory Results Laboratory Tests Test 11/13/17 08:22 White Blood Count 5.5 TH/MM3 Red Blood Count 4.22 MIL/MM3 Hemoglobin 13.0 GM/DL Hematocrit 38.0 % Mean Corpuscular Volume 90.1 FL Mean Corpuscular Hemoglobin 30.7 PG Mean Corpuscular Hemoglobin Concent 34.1 % Red Cell Distribution Width 13.2 % Platelet Count 231 TH/MM3 Mean Platelet Volume 7.5 FL Neutrophils (%) (Auto) 59.4 % Lymphocytes (%) (Auto) 26.3 % Monocytes (%) (Auto) 9.7 % Eosinophils (%) (Auto) 3.7 % Basophils (%) (Auto) 0.9 % Neutrophils # (Auto) 3.3 TH/MM3 Lymphocytes # (Auto) 1.4 TH/MM3 Monocytes # (Auto) 0.5 TH/MM3 Eosinophils # (Auto) 0.2 TH/MM3 Basophils # (Auto) 0.0 TH/MM3 CBC Comment DIFF FINAL Differential Comment Prothrombin Time 10.7 SEC Prothromb Time International Ratio 1.1 RATIO Activated Partial Thromboplast Time 25.7 SEC Blood Urea Nitrogen 9 MG/DL Creatinine 0.82 MG/DL Random Glucose 151 MG/DL Calcium Level 8.7 MG/DL Sodium Level 139 MEQ/L Potassium Level 3.9 MEQ/L Chloride Level 103 MEQ/L Carbon Dioxide Level 26.2 MEQ/L Anion Gap 10 MEQ/L Estimat Glomerular Filtration Rate 67 ML/MIN Culture Results Microbiology Date/Time Source Procedure Growth Status 11/10/17 22:06 Urine Clean Catch Urine Culture - Preliminary Gram Negative Andrew Resulted Administered Medications Medications (Trade) Dose Ordered Sig/Katie Route PRN Reason Start Time Stop Time Status Last Admin Dose Admin Sodium Chloride (NS Flush) 2 ml BID IV FLUSH 11/10/17 21:00 11/13/17 09:02 Acetaminophen (Tylenol) 650 mg Q4H PRN PO TEMP > 100.4 11/10/17 19:45 11/11/17 04:18 Amlodipine Besylate (Norvasc) 5 mg DAILY PO 11/11/17 09:00 11/13/17 09:02 Betamethasone/ Clotrimazole (Lotrisone Cream) 1 applic BID TOPICAL 11/10/17 21:00 11/11/17 09:19 Cholecalciferol (Vitamin D3) 400 units DAILY PO 11/11/17 09:00 11/13/17 09:01 Clonazepam (KlonoPIN) 0.5 mg QID PO 11/10/17 21:00 11/13/17 09:01 Levetriacetam (Keppra) 500 mg Q4HR PO 11/11/17 00:00 11/13/17 09:01 Lorazepam (Ativan) 0.5 mg DAILY PRN PO ANXIETY AND/OR AGITATION 11/10/17 20:15 11/13/17 09:02 Lactobacillus Acidophilus (Lactinex) 1 tab DAILY PO 11/11/17 09:00 11/13/17 09:01 Ceftriaxone Sodium 1000 mg/ Sodium Chloride 100 ml @ 200 mls/hr Q24H IV 11/10/17 22:45 11/12/17 23:15 Atenolol (Tenormin) 50 mg BID PO 11/11/17 21:00 11/13/17 09:01 Apixaban (Eliquis) 5 mg BID PO 11/12/17 14:15 11/13/17 09:02 Objective Remarks GENERAL: Pleasant female, lying supine in bed resting. SKIN: Warm and dry. HEAD: Normocephalic. EYES: No scleral icterus. No injection or drainage. NECK: Supple, trachea midline. CARDIOVASCULAR: +S1/S2 RESPIRATORY: Breath sounds equal bilaterally. No accessory muscle use. GASTROINTESTINAL: Abdomen soft, non-tender, nondistended. EXTREMITIES: No cyanosis. small bruise noted on dorsal left foot. scant edema in bilateral lower extremities. I do not see any asymmetry today. NEUROLOGICAL: awake and alert. normal speech. moving all extremities. Assessment/Plan Assessment 82y/o female with newly diagnosed extensive left lower extremity deep vein thromboses. history of atrial fibrillation, anxiety, cardiovascular disease, hypercholesterolemia, history of TIA, diabetes, fibromyalgia, gastroesophageal reflux, hypertension, costochondritis. remote history of deep vein thromboses 3 years ago. Plan 1. LLE DVT: continue Eliquis 2. monitor CBC 3. burning left foot: most likely neuropathy, but d/t patient frailty older age , will order plain film to ensure we are not missing fracture. Attending Statement The exam, history, and the medical decision-making described in the above note were completed with the assistance of the mid-level provider. I reviewed and agree with the findings presented. I attest that I had a [id number] encounter with the patient on the same day, and personally performed and documented my assessment and findings in the medical record. Pt tolerating Eliquis well. Discussed that there is no blood test for Eliquis efficacy. Reassured her renal function and hgb were normal. No other blood test needed from heme/onc stand point. Appreciate Dr. Darren gerardo, pt pleased. OK for DC to RETIREMENT from heme/onc standpoint. Referred pt to Case Management for her financial questions about rehab. Will sign off. Reconsult as needed. Francine Olivier Nov 13, 2017 11:20 Madison Albrecht MD Nov 13, 2017 12:44
--- NOTE | 2017-11-13 11:42 | RADRPT ---
EXAM DATE: 11/13/2017 11:39 AM EDT AGE/SEX: 82 years / Female INDICATIONS: Left foot pain, denies injury CLINICAL DATA: This is the patient's initial encounter. Patient reports that signs and symptoms have been present for 3 days and indicates a pain score of 0/10. MEDICAL/SURGICAL HISTORY: . Hypertension. Gastroesophageal reflux disease. Hypercholesterolemia . Left leg DVT. CVA. A-fib. Fibromyalgia. Anticoagulant therapy. Cholecystectomy. COMPARISON: No prior exams available for comparison. FINDINGS: Bony structures are intact and in normal alignment. Osseous density is normal. Soft tissues are unre markable. No radiopaque foreign bodies seen. Moderate osteoarthritis of the first MTP joint. CONCLUSION: Osteoarthritis. Electronically signed by: Ihsan Drummond MD 11/13/2017 11:41 AM EDT
[2017-11-13] MEDS: ESTRADIOL 0.1 MG/GM VAG CREAM 42.5 GM VAGINAL SCH (20:56)
[2017-11-13] MEDS: cefTRIAXone INJ 1,000 MG in SODIUM CHLORIDE 0.9% INJ 100 ML IV SCH (22:23)
[2017-11-14] MEDS: levETIRAcetam 500 MG TAB PO SCH ×4 (00:14→12:57)
[2017-11-14 04:00] VITALS: BP 144/65; PULSE 59; PULSE 62; RESP 17; TEMP 97.9; O2SAT 96
[2017-11-14 08:00] VITALS: BP 159/69; PULSE 63; RESP 18; TEMP 97.7; O2SAT 95
[2017-11-14] MEDS: BETAMETHASONE/CLOTRIMAZOLE CREAM 15 GM TOPICAL SCH (09:00)
[2017-11-14] MEDS: ATENOLOL 50 MG TAB PO SCH (09:12)
[2017-11-14] MEDS: CHOLECALCIFEROL (VIT D3) 400 UNIT TAB PO SCH (09:12)
[2017-11-14] MEDS: clonazePAM 0.5 MG TAB PO SCH ×3 (09:12→12:59)
[2017-11-14] MEDS: SODIUM CHLORIDE 0.9% FLUSH 10 ML FLUSH IV FLUSH SCH (09:13)
[2017-11-14] MEDS: LACTOBACILLUS ACIDOPHILUS TAB PO SCH (09:13)
[2017-11-14] MEDS: amLODIPine BESYLATE 5 MG TAB PO SCH (09:13)
[2017-11-14] MEDS: APIXABAN 5 MG TABLET PO SCH (09:13)
[2017-11-14] MEDS ORDERED: APIX5TAB PO (10:05)
--- NOTE | 2017-11-14 10:11 | HHI.DS ---
Discharge Summary Admission Date Nov 10, 2017 at 19:38 Discharge Date: Nov 14, 2017 Admitting Diagnosis DVT (1) DVT (deep venous thrombosis) ICD Code: I82.409 - Acute embolism and thrombosis of unspecified deep veins of unspecified lower extremity Diagnosis: Principal Status: Acute (2) E-coli UTI ICD Code: N39.0 - Urinary tract infection, site not specified; B96.20 - Unspecified Escherichia coli [E. coli] as the cause of diseases classified elsewhere Diagnosis: Secondary Status: Acute Procedures none Brief History - From Admission 82 y/o female with a history of DVT, [place], AFIB, Anxiety, HLD, TIA, GERD, and HTN presented to the ED with complaints of Left lower leg swelling. Patient states the pain is a 5/10, intermittent aching, worse with movement and walking , better with rest, no radiation or associated symptoms. Patient lives at [facility] the independent living and does take Coumadin daily, but compliance may be an issue since her INR is 1.0. She follows outpatient with Dr. Penaloza. Dr. Penaloza requested she be abetted overnight with a heparin drip. She is sitting up eating dinner, denies any chest pain or SOB. She also has a history of chronic UTIs and a UA was down outpatient, patient denies dysuria but complains of frequency. CBC/BMP: 11/13/17 0822 11/13/17 0822 Significant Findings Laboratory Tests Test 11/11/17 16:25 11/12/17 05:32 11/13/17 08:22 Activated Partial Thromboplast Time 50.7 SEC (24.3-30.1) 53.6 SEC (24.3-30.1) Monocytes (%) (Auto) 9.1 % (0.0-8.0) 9.7 % (0.0-8.0) Random Glucose 146 MG/DL (74-106) 151 MG/DL (74-106) Estimat Glomerular Filtration Rate 65 ML/MIN (>89) 67 ML/MIN (>89) Imaging Last Impressions Foot X-Ray 11/13/17 0000 Signed Impressions: CONCLUSION: Osteoarthritis. Lower Extremity Ultrasound 11/12/17 0000 Signed Impressions: CONCLUSION: 1. The study is negative for lower extremity deep venous thrombosis. 11/10 left lower extensive DVT PE at Discharge GENERAL: This is a well-nourished, well-developed patient, in no apparent distress. CARDIOVASCULAR: Regular rate and rhythm without murmurs, gallops, or rubs. RESPIRATORY: Clear to auscultation. Breath sounds equal bilaterally. No wheezes , rales, or rhonchi. GASTROINTESTINAL: Abdomen soft, non-tender, nondistended. MUSCULOSKELETAL: LLE edema and tenderness NEUROLOGICAL: Awake and alert. Normal speech. Hospital Course These are the medical issues addressed during this hospitalization: 82-year-old female with history of DVT, A. fib, 3 times daily, and hypertension presents to the ED with left lower extremity swelling, found to have extensive DVT Left lower extremity DVT -Hematology oncology was consulted for anticoagulation recommendations: Was discussed with the patient that she needs to be on anticoagulation therapy for history of 6 months. She declined Coumadin. She did not want to give herself a shot. She does decline the newer anticoagulation agent such her insurance does not cover them. Ultrasound of the contralateral right leg showed no DVT. Patient discussed her anticoagulations with Dr. Banks before making a decision during this hospitalization. She has a history of a remote infarct in the past as well as focal simple seizures that have been stable. Per Dr. Banks there is no contraindication to starting the patient on Eliquis long-term. He recommended that the patient stop the Plavix and aspirin while on Eliquis. E. coli UTI Completed a 3 day course of Rocephin (started 11/10), has a history of chronic UTIs Urine culture shows E. coli Hypertension, chronic essential Continue home atenolol and Norvasc DVT prophylaxis: on eliquis At this time, patient has gained maximum benefit from hospitalization and will be discharged to [facility] facility Pt Condition on Discharge: Good Discharge Disposition: Discharge to SNF Discharge Time: <= 30 minutes Discharge Instructions DIET: Follow Instructions for: Heart Healthy Diet Activities you can perform: Regular-No Restrictions Follow up Referrals: PCP Follow-up - 1 Week New Medications: Apixaban (Eliquis) 5 Mg Tab 5 MG PO BID for Blood Clot Prevention, #60 TAB 0 Refills Continued Medications: Amlodipine (Norvasc) 5 Mg Tab 5 MG PO DAILY for Blood Pressure Management, #30 TAB 0 Refills Ascorbate Calcium/Bioflavonoid (Malka-C 1,000 mg Tablet) 1,000 Mg-200 Mg Tablet 1 TAB PO DAILY Atenolol (Atenolol) 50 Mg Tab 50 MG PO BID for Blood Pressure Management, #30 TAB 0 Refills Betamethasone-Clotrimazole Topical (Lotrisone Topical) 1-0.05% Cream 1 APPLIC TOPICAL BID for Fungal infection, GM 0 Refills Calcium Carbonate-Cholecalciferol (Calcium 500 +D) 500-400 Mg-Unit Tab 1 TAB PO QID for Calcium Supplement, TAB 0 Refills Cholecalciferol (Vitamin D-400) 400 Unit Tab 400 UNITS PO DAILY for Nutritional Supplement, BOTTLE 0 Refills Clonazepam (Klonopin) 0.5 Mg Tab 0.5 MG PO QID, #60 TAB 0 Refills Coenzyme Q10 (Ubidecarenone) (Co Q 10) 100 Mg-5 Unit Cap 1 TAB PO DAILY Estradiol Vaginal (Estrace Vaginal) 0.01% Cream 1 APPL VAGINAL HS for Estrogen Supplements, TUBE 0 Refills Levetiracetam (Keppra) 500 Mg Tab 1000 MG PO TID for Control Seizures, #60 TAB 0 Refills Lorazepam (Ativan) 0.5 Mg Tab 0.5 MG PO DAILY PRN for ANXIETY AND/OR AGITATION, TAB 0 Refills Probiotic Product (Acidophilus) 1 Chew 1 TAB PO DAILY Vitamins C & E (Cranberry Urinary Comfort) 1 Cap 1 CAP PO DAILY for Urinary Symptom Managemen, CAP 0 Refills Discontinued Medications: Clopidogrel (Plavix) 75 Mg Tab 75 MG PO HS for Blood Clot Prevention, #30 TAB 0 Refills Warfarin (Warfarin) 1 Mg Tab 1 MG PO DAILY for Blood Clot Prevention, TAB 0 Refills Bridget Stout MD Nov 14, 2017 10:11
[2017-11-14] MEDS ORDERED: CLON.5 PO (11:54)
[2017-11-14 12:10] VITALS: BP 119/56; PULSE 68; RESP 17; TEMP 98; O2SAT 94
== END 2017-11-14 13:13 | DRG 300 ==
LOC: NEPC 15:00 → NEDA 18:49 → OBSVTOIN 19:38 → NEPFCDU 20:45 → N06B 11-11 13:04
PROVIDERS: ADMIT Family Medicine; ATTEND Family Medicine
DX: I82.422 Acute embolism and thrombosis of left iliac vein (principal); N39.0 Urinary tract infection, site not specified; R56.9 Unspecified convulsions; I48.91 Unspecified atrial fibrillation; K21.9 Gastro-esophageal reflux disease without esophagitis; E78.5 Hyperlipidemia, unspecified; F41.9 Anxiety disorder, unspecified; I10 Essential (primary) hypertension; B96.20 Unspecified Escherichia coli [E. coli] as the cause of diseases classified elsewhere; Z86.73 Personal history of transient ischemic attack (TIA), and cerebral infarction without residual deficits; Z79.01 Long term (current) use of anticoagulants; Z88.0 Allergy status to penicillin; Z88.2 Allergy status to sulfonamides; Z88.8 Allergy status to other drugs, medicaments and biological substances; Z88.1 Allergy status to other antibiotic agents; Z91.040 Latex allergy status
CPT/HCPCS: 73630; 80048; 81001; 85025; 85610; 85730; 87077; 87086; 87186; 93971; 99285; J0696; J1644